=== PATIENT | female | born 1950 | race Caucasian/White ===

== ENCOUNTER → 2022-02-28 07:03 | Outpatient (CLI) | payer MEDICARE, SELFPAY ==
--- NOTE | ~2022-02-28 | MR_ITS ---
EXAMINATION: MR lumbar spine wo con DATE: 02/28/2022 07:34 INDICATION: Lumbar radiculopathy. TECHNIQUE: Magnetic resonance imaging (MRI) of the lumbar spine was performed without intravenous con trast. Sequences included sagittal T2-weighted FSE, sagittal T2-weighted FS FSE, sagittal T1-weighted FSE, and axial T2-weighted FSE. COMPARISON: None FINDINGS: There is 14 degrees levoscoliosis of thoracolumbar spine. There is a chronic compression fr acture of L2 with 1/5 loss of height. There is mildly decreased disc height at T12-L1, severely decre ased disc height at L2-L3, L3-L4, and L4-L5, and moderately decreased disc at L5-S1 with endplate rem odeling. The distal spinal cord signal intensity is normal. The conus medullaris is at L2. Partially visualized is a 3.2 cm cyst in right kidney. The following disc levels are specifically discussed: T12-L1: The disc is bulging and has an annular fissure. There is mild bilateral facet joint osteoarth ritis. There is mild left neural foraminal stenosis. There is mild central canal stenosis. L1-L2: The disc is bulging and has an annular fissure. There is moderate bilateral facet joint osteoa rthritis. There is mild bilateral neural foraminal stenosis. There is mild central canal stenosis. L2-L3: The disc is bulging and has an annular fissure. There is mild bilateral facet joint osteoarthr itis. There is mild bilateral neural foraminal stenosis. There is mild central canal stenosis. L3-L4: The disc is bulging with superimposed left central extrusion. There is moderate right and and severe left facet joint osteoarthritis. There is mild bilateral neural foraminal stenosis. There is m ild central canal stenosis. L4-L5: The disc is bulging and has an annular fissure. There is moderate left facet joint osteoarthri tis. There is mild bilateral neural foraminal stenosis. There is mild central canal stenosis. L5-S1: The disc is bulging and has an annular fissure. There is moderate right and severe left facet joint osteoarthritis. There is mild bilateral neural foraminal stenosis. There is mild central canal stenosis. IMPRESSION: 1. Severe lumbar spondylosis. 2. Thoracolumbar levoscoliosis. Reviewed, dictated and finalized at location A.
== END ==
PROVIDERS: PCP Internal Medicine; Visit Provider Nurse Practitioner Family
DX: M54.16 Radiculopathy, lumbar region (principal); M47.894 Other spondylosis, thoracic region
CPT/HCPCS: 72148

== ENCOUNTER 2022-04-25 11:53 | Outpatient (CLI) | payer MEDICARE, SELFPAY ==
--- NOTE | 2022-04-25 12:54 | ECG_ITS ---
Measurements Intervals [place] Rate: 78 P: 62 PA: 189 QRS: 13 QRSD: 87 T: 48 QT: 353 QTc: 403 Interpretive Statements SINUS RHYTHM CONSIDER INFERIOR INFARCT, AGE INDETERMINATE BASELINE ARTIFACT- I, II, III, AVR, AVL, AVF ABNORMAL ECG Electronically Signed On 04-25-2022 13:20:21 CDT by Juice Harper D.O.
[2022-04-25 13:37] LABS: Basophils Percent Auto 0.4 % (0.2-1.2); Eosinophils Percent Auto 0.7 % (0-4.4); Hematocrit 46.8 % (37.0-47.0); Hemoglobin 15.7 g/dL (12.0-15.0); Immature Granulocyte Absolute 0.01 K/mm3 (0.00-0.031); Immature Granulocyte Percent A 0.2 % (0-0.5); Lymphocytes Absolute Auto 1.68 K/mm3 (0.9-3.2); Lymphocytes Percent Auto 30.2 % (18.3-44.2); Mean Corpuscular HGB Conc 33.5 g/dl (32-36); Mean Corpuscular Hemoglobin 29.7 pg (26-34); Mean Corpuscular Volume 88.6 fl (80-100); Mean Platelet Volume 9.1 fl (7.4-10.4); Monocytes Absolute Auto 0.6 K/mm3 (0.1-0.6); Monocytes Percent Auto 9.9 % (2.6-8.5); Neutrophils Absolute Auto 3.3 K/mm3 (1.3-6.7); Neutrophils Percent Auto 58.6 % (45.5-73.1); Platelet Count Result 253 k/mm3 (150-375); Red Blood Count 5.28 M/mm3 (4.2-5.4); White Blood Count 5.6 K/mm3 (4.5-10.0)
[2022-04-25 13:41] LABS: Appearance Urine Clear (Clear); Bilirubin Urine Negative (Negative); Blood Urine Negative (Negative); Color Urine Yellow (Yellow); Glucose Urine UA Negative (Negative); Ketones Urine Negative (Negative); Leukocyte Esterase Ur Negative LEU/UL (Negative); Nitrate Urine Negative (Negative); Protein Urine Negative (Negative); Specific Grav Ur >= 1.030 (1.001-1.035); Urobilinogen Urine 0.2 mg/dL (<2.0)
[2022-04-25 13:46] LABS: INR 1.1; Prothrombin Time 13.3 Seconds (11.1-14.7)
[2022-04-25 13:49] LABS: Urine Cotinine NEGATIVE
[2022-04-25 13:49] LABS: Albumin Level 4.7 g/dL (3.5-5.1); Anion Gap 11 mmol/L (8-16); Blood Urea Nitrogen 17 mg/dL (7-17); Calcium 10.1 mg/dL (8.4-10.2); Carbon Dioxide 27 mmol/L (22-30); Chloride 104 mmol/L (98-107); Estimated Glomerular Filt Rate 49; Glucose 98 mg/dL (65-110); Potassium 4.3 mmol/L (3.4-5.0); Sodium 142 mmol/L (137-145)
[2022-04-25 13:50] LABS: Hemoglobin A1C 4.9 % (<5.7)
[2022-04-25 13:52] LABS: Mucus Urine Rare /lpf; Squamous Epithelial Cell Urine Rare /hpf (Few)
[2022-04-25 14:03] LABS: Add Urine Microscopic? YES
== END 2022-04-25 11:54 | disposition home or self-care (01) ==
LOC: ANHSURGERY 11:58
PROVIDERS: PCP Internal Medicine; Visit Provider Orthopaedic Surgery
DX: M17.12 Unilateral primary osteoarthritis, left knee (principal); Z01.818 Encounter for other preprocedural examination; R94.31 Abnormal electrocardiogram [ECG] [EKG]
CPT/HCPCS: 80048; 80307; 81001; 82040; 83036; 85025; 85610; 85730; 87081; 93005

== ENCOUNTER 2022-05-09 00:12 | Day surgery (SDC) | payer MEDICARE, SELFPAY ==
[2022-04-25 12:05] VITALS: BMI 27.7
--- NOTE | 2022-04-25 12:36 | PC.NURSE ---
Addendum entered by Christina Huggins RN 04/25/22 12:41: TAKES ALPRAZOLAM AT HS. DON'T TAKE AM OF SURGERY Original Note: Report to the Outpatient Waiting Room, entrance under the green pavilion located off [facility], at time _0900 on date __05/09/22 . OR Time: 1100 . - You and your visitor will be asked a series of questions to screen for COVID 19 for your protection. - Only one visitor is allowed at this time. - The patient visitor is requested to leave or wait in car when not with patient. - A mask is required within the hospital. Patients may have clear liquids (water, carbonated beverages, clear teas, apple juice) until 3 hours prior to surgery with a maximum of 20 ounces. - No food from midnight until time of surgery - Infants may have breast milk until 4 hours before surgery, formula 6 hours prior to surgery. - Children will be allowed to drink immediately following surgery. If applicable, please bring a bottle or sippy cup to assist with drinking. Juice, water, soda, and popsicles are readily available. For infants on formula, please bring formula the day of surgery. Pacifiers are allowed. Take the following medications with a SIP of water the morning of surgery: ___ALPRAZOLAM,ESCITALOPRAM, Medications to discontinue per physician __ALEVE PER DR BECERRA. ALL VITAMINS AND SUPPLEMENTS 3 DAYS PRE OP Date to take last dose____05/05/22 Please no make-up, nail greek, hairspray, perfume, deodorant, or body powder the day of surgery. No jewelry (including any body piercings) or valuables the day of surgery, leave them at home. Please take a shower or bath the night before, or the morning of, surgery with an antibacterial soap. Wear comfortable, loose fitting clothing. Children are encouraged to wear pajamas. - Jewelry must be removed prior to entering the operating room. Rings and piercings that are not removed may be cut off. - The hospital will not accept responsibility for valuables. - Please leave all valuables, including medications, at home the day of surgery. If you are going home after surgery, a licensed wrecking car driver must drive you home. - NO public transportation without another adult. - We recommend that an adult stay with you for 24 hours following discharge. - We also recommend that you do not drive, make important decision, drink alcoholic beverages, or take any drugs that were not prescribed by your health care provider for at least 24 hours after your discharge time. For Pediatric surgeries, we recommend two adults accompany the child home (only one inside the building at this time). Follow any additional instructions given to you from your surgeon. If you or anyone in your household have experienced Covid symptoms in the past week, please notify your surgeon or the nurse liaison at the phone number below for possible testing. Telephone instructions given to _PATIENT and asked if any additional questions and then verbalized understanding. Patient advised to call surgeon office or pre surgery nurse liaison [phone] if any additional questions.
[2022-04-25 12:50] VITALS: BP 111/80; PULSE 83; RESP 18; TEMP 36.6; O2SAT 98
[2022-05-09] VITALS (15 sets, daily range): BP systolic 108–151; BP diastolic 70–98; PULSE 74–100; RESP 12–20; TEMP 36.1–36.4; O2SAT 96–100
--- NOTE | ~2022-05-09 | XR_ITS ---
XR knee LT 2V DATE: 05/09/2022 14:11 INDICATION: Left total knee arthroplasty TECHNIQUE: Postoperative AP and lateral views COMPARISON: 04/10/2022 left knee FINDINGS: Status post left total knee arthroplasty without patellar resurfacing. Normal alignment at the left knee joint. There is expected postoperative subcutaneous and intra-articular emphysema. Skin austin are noted along the anterior aspect of the knee. IMPRESSION: Status post left knee arthroplasty Reviewed, dictated and finalized at location B.
--- NOTE | 2022-05-09 07:16 | WPDHPUPDATE1 ---
History and Physical Update Update Date/Time: 05/09/22 07:16 History and Physical has been reviewed, including an updated exam of the patient. There are NO changes in the patient's condition. Risks, benefits, and alternatives have been discussed and questions answered. Patient agrees to proceed with procedure.
[2022-05-09] MEDS: ACETAMINOPHEN 500 MG TABLET 1000 MG PO (09:12)
[2022-05-09] MEDS: LACTATED RINGERS 1,000 ML 30 ML IV CONT (09:33)
--- NOTE | 2022-05-09 10:20 | WPDANESEPPF ---
Anes - Initial Pre Proc Eval Procedure: Operation Date: 05/09/22 11:00 Proposed Procedures p Left Total Knee Arthroplasty - Oscar Baez MD Date/Time: 05/09/22 10:20 Surgeon: Oscar Baez MD Pre Op Diagnosis: Left Knee DJD Patient Data Age: 71 Gender: F Height: 1.68 m Weight: 77.2 kg Last Vital Signs Temp 36.1 C L 05/09/22 09:18 Pulse 89 05/09/22 09:18 Resp 16 05/09/22 09:18 BP 147/91 H 05/09/22 09:18 Pulse Ox 98 05/09/22 09:18 O2 Del Method Room Air 05/09/22 09:18 Allergies Allergy/AdvReac Type Severity Reaction Status Date / Time erythromycin base Allergy Mild Rash Verified 05/09/22 09:09 Home Medications Medication Instructions Recorded Confirmed Type alprazolam 1 mg tablet 0.25 mg PO HS 04/10/22 05/09/22 History famotidine 20 mg tablet 20 mg PO DAILY 04/10/22 05/09/22 History glucosamine HCl 500 mg tablet 1,000 mg PO DAILY 04/10/22 05/09/22 History pantoprazole 40 mg tablet,delayed 40 mg PO QAM 04/10/22 05/09/22 History release calcium citrate 315 mg-vitamin D3 1 tablet PO BID 04/25/22 05/09/22 History 5 mcg (200 unit) tablet (Calcium Citrate + D) cholecalciferol (vitamin D3) 50 100 mcg PO DAILY 04/25/22 05/09/22 History mcg (2,000 unit) tablet cyanocobalamin (vitamin B-12) 2,500 mcg PO DAILY 04/25/22 05/09/22 History 2,500 mcg tablet escitalopram oxalate 20 mg tablet 20 mg PO DAILY 04/25/22 05/09/22 History naproxen sodium 220 mg capsule 440 mg PO PRN PRN Pain 04/25/22 05/09/22 History (Aleve) nutritional supp - diet aids 2 tablet PO BID 04/25/22 05/09/22 History omega-3 fatty acids 2,000 mg PO DAILY 04/25/22 05/09/22 History chlorhexidine gluconate 4 % 1 applic topical ONCE #237 mL 05/01/22 Rx topical liquid (Hibiclens) Laboratory Tests 05/09/22 09:27 Blood Type O Positive Antibody Screen Negative Patient hx anesthesia problems: none Family hx anesthesia problems: none Results Review: All pre-operative results and documents have been reviewed as part of the pre-operative evaluation. [facility] Past Medical History Medical History Arthritis Depression Left knee DJD Pelvis fracture, right Right knee DJD Weight gain Surgical History Surgical History History of eyelid surgery Ptosis- Dr. Sandhu Family History Family History Other Family history of arthritis Family history of malignant neoplasm Social History Social History Smoking status: Never smoker Additional smoking assessment comments: DENIES ANY FORM OF TOBACCO USE Alcohol intake: current Drinks per week: 2 Alcohol use details: WINE Substance use: never Living arrangements: with family Gender identity (if verbalized by the patient): Female Spiritual care concerns: No Anes - Eval Final PreProcedure Day of Procedure 05/09/22 10:20 Patient weight: overweight Heart: regular rate and rhythm Lungs: clear to auscultation Airway: Mallampati scale class II Neurological: alert and oriented Last oral intake: >/= 8 hours ASA classification: III Emergent: no Anesthetic plan: proceed Anesthesia type and monitoring: general LMA and standard monitoring Results Review: All pre-operative results and documents have been reviewed as part of the pre-operative evaluation. Informed Consent: The patient's anesthetic plan and its attendant risks and benefits were discussed with the patient/family/POA. Questions were solicited and answers provided to the satisfaction of the patient/family/POA.
[2022-05-09] MEDS: TRANEXAMIC ACID 1,000MG/ISO100 1,000 MG/100 ML BAG 200 MG IVPB (10:32)
--- NOTE | 2022-05-09 11:07 | WPDANESPNB ---
Anes - Peripheral Nerve Block Date/Time: 05/09/22 11:07 I have discussed with the patient/family/POA the placement of a peripheral nerve block for post-operative pain management, including associated risks, benefits, complications, and side effects. Alternative methods of post-operative analgesia were detailed. Questions were solicited and answers provided to the satisfaction of the patient/family/POA. Time-Out: A pre-procedural Time-Out was completed immediately before starting the procedure and confirmed: Patient Identification, Site, Procedure, Patient Position and the Availability of Requisite Equipment. Clinical Indications: Acute post-operative pain management requested by the operative surgeon. Nerve Block Insertion Note Anes-nerve block: adductor canal Patient position: supine Skin prep: chlorhexidine Needle: 22 gauge, stimulating, insulated echogenic needle. Needle length: 80 mm Technique: ultrasound Technique comment: mid 2mg fent 50mcg Injectate: bupivacaine 0.5% with epi 5 mcg/ml (30ml no epi) and dexamethasone (mg) (4) Observations: tolerated well Procedure start time:: 1058 Procedure end time:: 1103
[2022-05-09] MEDS: ceFAZolin 2 GM/D5W 50 ML 2 GM/50 ML BAG IVPB ×2 (11:33→18:06)
[2022-05-09] MEDS: GENTAMICIN BONE CEMENT REFOBACIN 1 EACH TOPICAL (12:22)
[2022-05-09] MEDS: TRANEXAMIC ACID 1,000 MG/10 ML AMPUL 1000 MG IV PUSH (13:06)
[2022-05-09] MEDS: fentaNYL CITRATE INJ (*CRX) 100 MCG/2 ML VIAL 25 MCG IV PUSH ×8 (14:06→14:56)
--- NOTE | 2022-05-09 14:15 | P.OP_ITS ---
Procedure Note - Detailed Date of Procedure 05/09/22 Pre-op Diagnosis Left Knee DJD Post-op Diagnosis Same Procedure Performed L TKA Surgeon Oscar Baez MD Anesthesia General Description of Procedure THE LEFT KNEE WAS PREPPED AND DRAPED IN THE STERILE FASHION. A MIDLINE SKIN INCISION WAS MADE. A MEDIAL PARAPATELLAR ARTHROTOMY WAS MADE. THE PATELLA WAS EVERTED. THERE WAS TRICOMPARTMENT DJD. AN INTRAMEDULLARY ZARA WAS PLACED IN THE FEMUR. A DISTAL FEMORAL CUT WAS MADE IN 5 DEGREES OF VALGUS REMOVING A PPROXIMATELY 9 MM OF BONE FROM THE DISTAL FEMUR. THE FEMUR WAS SIZED TO 65. A 65 FEMORAL CUTTING BLOCK WAS PLACED IN 3 DEGREES OF EXTERNAL ROTATION AND IN ALIGNMENT WITH SUKUMAR'S LINE AND THE TRANSEPICONDYLAR AXIS. ANTERIOR POSTERIOR AND CHAMFER CUTS WERE MADE. THE CUTS WERE EXCELLENT. NEXT AN INTRAMEDULLARY CUTTING GUIDE WAS PLACED IN THE TIBIA. A TRANS TIBIAL CUT WAS MADE ALONG THE LONG AXIS OF THE TIBIA. APPROXIMATELY 10 MM OF BONE WAS REMOVED FROM THE HIGH SIDE OF THE TIBIA. THE TIBIA WAS THEN PLANED TO A SMOOTH SURFACE. POSTERIOR FEMORAL OSTEOPHYTES WERE REMOVED FROM THE FEMORAL CONDYLES. A 75 TIBIAL TRIAL WAS PLACED IN ALIGNMENT WITH THE 1/3 MEDIAL ASPECT OF THE TIBIAL TUBERCLE. THEN A 65 FEMORAL TRIAL COMPONENT WAS PLACED. BOTH HAD EXCELLENT FITS. EVENTUALLY A 11 MM POLYETHYLENE TRIAL COMPONENT WAS PLACED. THE KNEE WAS TAKEN THROUGH A RANGE OF MOTION. THE KNEE CAME OUT TO FULL EXTENSION. THERE WAS NO ABNORMAL TILT TO THE PATELLA. THERE WAS GOOD A/P AND VARUS/VALGUS STABILITY. THERE WAS NO EXCESSIVE ROLL BACK WITH FLEXION. THE TRIAL COMPONENTS WERE REMOVED. THEN A 65 FEMORAL COMPONENT AND 75 TIBIAL COMPONENT WITH A 11 POLYETHYLENE COMPONENT WERE CEMENTED INTO PLACE. ONCE THE CEMENT WAS HARD THE KNEE WAS TAKEN THROUGH A ROM AGAIN AND FOUND TO BE STABLE WITH NO PATELLA TILT NO EXCESSIVE ROLL BACK WITH FLEXION AND GOOD STABILITY WITH COMPLETE AND FULL EXTENSION. THE KNEE WAS IRRIGATED WITH STERILE BETADINE AND WATER FOR ABOUT 3 MINUTES. THE BLEEDERS WERE CAUTERIZED. THE ARTHROTOMY WAS REPAIRED WITH NUMBER 1 VICRYL. THE SUB CUTANEOUS LAYER WITH 2-0 VICRYL AND THE SKIN WITH IKER. THE WOUND WAS WASHED AND A STERILE DRESSING WAS APPLIED. PATIENT WAS EXTUBATED. Estimated Blood Loss -100.0 Pathology None sent Complications No immediate complications Condition Stable Disposition PACU
--- NOTE | 2022-05-09 15:59 | ADMGEN ---
This patient, Nancy Lopez, was admitted to Medical Room 253-01. Patient/family oriented to hospital policies and general routines including ID bracelet, bed and alarms, visiting hours, pain management, procedures, bathroom and other care routines, personal items, smoking policy, room service/diet, and visiting hours. Information on how to activate the Rapid Response Team has been discussed. Patient/Family are encouraged to report perceived risks to care and to ask questions if they do not understand what they are told or what they should do.
[2022-05-09 16:31] LABS: Estimated CRCL calculation 52 ml/min; Estimated Glomerular Filt Rate > 60
[2022-05-09] MEDS: SENNA/DOCUSATE SODIUM TABLET 2 TAB PO (16:57)
[2022-05-09] MEDS: CELECOXIB 200 MG CAPSULE PO (16:58)
--- NOTE | 2022-05-09 19:21 | PC.NURSE ---
On 05/09/22, the Graduate Nurse, Ajay Reyes, provided care and completed [facility] documentation on this patient. I have reviewed the student's documentation and agree with the findings.
[2022-05-09] MEDS: ASPIRIN 325 MG ENTERIC TABLET PO (21:29)
[2022-05-09] MEDS: ALPRAZolam (*CRX) 0.25 MG TABLET PO (21:29)
[2022-05-10 02:03] VITALS: BP 100/61; PULSE 82; RESP 20; TEMP 36.1; O2SAT 98
[2022-05-10] MEDS: ceFAZolin 2 GM/D5W 50 ML 2 GM/50 ML BAG IVPB ×2 (02:19→10:30)
[2022-05-10 05:50] VITALS: BP 102/57; PULSE 58; RESP 20; TEMP 36.1; O2SAT 99
[2022-05-10 06:22] LABS: Basophils Percent Auto 0.1 % (0.2-1.2); Eosinophils Percent Auto 0.1 % (0-4.4); Hematocrit 37.8 % (37.0-47.0); Hemoglobin 12.6 g/dL (12.0-15.0); Immature Granulocyte Absolute 0.03 K/mm3 (0.00-0.031); Immature Granulocyte Percent A 0.3 % (0-0.5); Lymphocytes Absolute Auto 1.54 K/mm3 (0.9-3.2); Lymphocytes Percent Auto 14.9 % (18.3-44.2); Mean Corpuscular HGB Conc 33.3 g/dl (32-36); Mean Corpuscular Hemoglobin 29.8 pg (26-34); Mean Corpuscular Volume 89.4 fl (80-100); Mean Platelet Volume 9.1 fl (7.4-10.4); Monocytes Absolute Auto 1.1 K/mm3 (0.1-0.6); Monocytes Percent Auto 10.7 % (2.6-8.5); Neutrophils Absolute Auto 7.6 K/mm3 (1.3-6.7); Neutrophils Percent Auto 73.9 % (45.5-73.1); Platelet Count Result 207 k/mm3 (150-375); Red Blood Count 4.23 M/mm3 (4.2-5.4); White Blood Count 10.3 K/mm3 (4.5-10.0)
[2022-05-10 06:44] LABS: Anion Gap 8 mmol/L (8-16); Blood Urea Nitrogen 11 mg/dL (7-17); Calcium 9.4 mg/dL (8.4-10.2); Carbon Dioxide 25 mmol/L (22-30); Chloride 103 mmol/L (98-107); Estimated CRCL calculation 52 ml/min; Estimated Glomerular Filt Rate > 60; Glucose 97 mg/dL (65-110); Potassium 3.9 mmol/L (3.4-5.0); Sodium 136 mmol/L (137-145)
--- NOTE | 2022-05-10 07:55 | P.PNAN_ITS ---
Anes - Prog Note Post-Op Date/Time: 05/10/22 07:55 Cardiovascular status: normal Respiratory status: normal Airway patency: baseline Mental status: baseline Post-Op hydration status: normal Vital Signs: Last Vital Signs Temp 97.0 F L 05/10/22 05:50 Pulse 58 L 05/10/22 05:50 Resp 20 05/10/22 05:50 BP 102/57 L 05/10/22 05:50 Pulse Ox 99 05/10/22 05:50 O2 Del Method Room Air 05/09/22 20:00 O2 Flow Rate 2 05/09/22 15:35 Pain Score (VAS): 11/10 I/O: Intake & Output 05/09/22 05/09/22 05/10/22 15:59 23:59 07:59 Intake Total 650 690 550 Output Total 200 900 Balance 650 490 -350 Laboratory Tests 05/10/22 06:01 05/10/22 06:01 05/09/22 05/09/22 05/10/22 09:27 16:18 06:01 WBC 10.3 H RBC 4.23 Hgb 12.6 D Hct 37.8 MCV 89.4 MCH 29.8 MCHC 33.3 RDW 13.0 Plt Count 207 MPV 9.1 Immature Gran % (Auto) 0.3 Neut % (Auto) 73.9 H Lymph % (Auto) 14.9 L [place] % (Auto) 10.7 H Eos % (Auto) 0.1 Baso % (Auto) 0.1 L Lymph # (Auto) 1.54 [place] # (Auto) 1.1 H Eos # (Auto) 0.0 Baso # (Auto) 0.0 Abs Immat Gran (auto) 0.03 Absolute Neuts (auto) 7.6 H Absolute Nucleated RBC 0.0 Nucleated RBC % 0.0 Sodium Potassium Chloride Carbon Dioxide Anion Gap BUN Creatinine 0.90 Estim Creat Clear Calc 52 Estimated GFR > 60 Glucose Calcium Blood Type O Positive Antibody Screen Negative 05/10/22 06:01 WBC RBC Hgb Hct MCV MCH MCHC RDW Plt Count MPV Immature Gran % (Auto) Neut % (Auto) Lymph % (Auto) [place] % (Auto) Eos % (Auto) Baso % (Auto) Lymph # (Auto) [place] # (Auto) Eos # (Auto) Baso # (Auto) Abs Immat Gran (auto) Absolute Neuts (auto) Absolute Nucleated RBC Nucleated RBC % Sodium 136 L Potassium 3.9 Chloride 103 Carbon Dioxide 25 Anion Gap 8 BUN 11 D Creatinine 0.90 Estim Creat Clear Calc 52 Estimated GFR > 60 Glucose 97 Calcium 9.4 Blood Type Antibody Screen Post-procedural complaints: none Patient Feedback: Patient satisfied with anesthetic care.
[2022-05-10] MEDS: CELECOXIB 200 MG CAPSULE PO ×2 (08:22→16:54)
[2022-05-10] MEDS: ASPIRIN 325 MG ENTERIC TABLET PO (08:22)
[2022-05-10] MEDS: SENNA/DOCUSATE SODIUM TABLET 2 TAB PO ×2 (08:23→16:53)
[2022-05-10] MEDS: CHOLECALCIFEROL 1,000 UNITS TABLET 4000 UNITS PO (08:23)
[2022-05-10] MEDS: CYANOCOBALAMIN 500 MCG TABLET 2500 MCG PO (08:23)
[2022-05-10] MEDS: ESCITALOPRAM OXALATE 10 MG TABLET 20 MG PO (08:24)
[2022-05-10] MEDS: PANTOPRAZOLE 40 MG TABLET PO (08:24)
[2022-05-10] MEDS: FAMOTIDINE 20 MG TABLET PO (08:24)
[2022-05-10] MEDS: polyethylene glycoL 3350 17 GM POWD.PACK PO (08:25)
[2022-05-10 10:20] VITALS: BP 119/64; PULSE 60; RESP 16; TEMP 36.9; O2SAT 99
[2022-05-10 14:00] VITALS: BP 104/53; PULSE 73; RESP 16; TEMP 36.9; O2SAT 97
--- NOTE | 2022-05-10 15:00 | PM.PNORT ---
Progress Note: A&P Assessment and Plan (1) Left knee DJD: Qualifiers: Osteoarthritis type: primary Qualified Code(s): M17.12 - Unilateral primary osteoarthritis, left knee Code(s): M17.12 - Unilateral primary osteoarthritis, left knee Status: Acute Plan POD 1 DOING WELL. OK TO DC HOME F/U IN 3 WEEKS. Subjective Subjective Date/Time Seen: 05/10/22 15:00 POD 1 DOING VERY WELL WORKING WELL WITH PT. NO CALF PAIN Exam Extrem: Other: VSS AFEBRILE DRESSING DRY NV INTACT NEG HOMANS SIGN, CALF SOFT NON TENDER Objective Data Vital Signs Vital Signs: Vital Signs - 24 hr 05/09/22 15:15 05/09/22 15:30 05/09/22 15:35 Temperature Pulse Rate 88 74 87 Respiratory Rate 12 14 12 Blood Pressure 125/72 141/83 H 139/80 Pulse Oximetry 98 100 100 Oxygen Delivery Nasal Cannula Nasal Cannula Nasal Cannula Oxygen Flow Rate 2 2 2 05/09/22 15:55 05/09/22 16:17 05/09/22 16:39 Temperature 36.1 C L 36.2 C L 36.4 C L Pulse Rate 92 75 93 Respiratory Rate 20 20 18 Blood Pressure 139/82 130/85 118/83 Pulse Oximetry 100 96 100 Oxygen Delivery Oxygen Flow Rate 05/09/22 17:40 05/09/22 21:26 05/09/22 20:00 Temperature 36.3 C L 36.2 C L Pulse Rate 99 97 Respiratory Rate 18 20 Blood Pressure 108/70 109/73 Pulse Oximetry 96 98 Oxygen Delivery Room Air Oxygen Flow Rate 05/10/22 02:03 05/10/22 05:50 05/10/22 07:34 Temperature 36.1 C L 36.1 C L Pulse Rate 82 58 L Respiratory Rate 20 20 Blood Pressure 100/61 102/57 L Pulse Oximetry 98 99 Oxygen Delivery Room Air Oxygen Flow Rate 05/10/22 09:04 05/10/22 10:20 05/10/22 14:00 Temperature 36.9 C 36.9 C Pulse Rate 60 73 Respiratory Rate 16 16 Blood Pressure 119/64 104/53 L Pulse Oximetry 99 97 Oxygen Delivery Room Air Oxygen Flow Rate Intake/Output Intake/Output: Intake & Output 05/07/22 05/08/22 05/09/22 05/10/22 23:59 23:59 23:59 23:59 Intake Total 1340 1010 Output Total 200 900 Balance 1140 110 Meds/Results Medications: Active Medications Generic Name Dose Route Start Last Admin Trade Name Mananq PRN Reason Stop Dose Admin Acetaminophen 1,000 mg 05/09/22 15:39 Acetaminophen 500 Mg Tablet PO Q6H PRN Pain Rated 1-3 Alprazolam 0.25 mg 05/09/22 21:00 05/09/22 21:29 Alprazolam (*Crx) 0.25 Mg Tablet PO 0.25 mg HS LÓPEZ Administration Aspirin 325 mg 05/09/22 21:00 05/10/22 08:22 Aspirin 325 Mg Enteric Tablet PO 325 mg Q12HR LÓPEZ Administration Celecoxib 200 mg 05/09/22 17:00 05/10/22 08:22 Celecoxib 200 Mg Capsule PO 200 mg BIDWM LÓPEZ Administration Cyanocobalamin 2,500 mcg 05/10/22 09:00 05/10/22 08:23 Cyanocobalamin 500 Mcg Tablet PO 2,500 mcg DAILY LÓPEZ Administration Diazepam 5 mg 05/09/22 15:39 Diazepam (*Crx) 5 Mg Tablet PO Q8H PRN Spasms Diphenhydramine HCl 25 mg 05/09/22 15:39 Diphenhydramine Hcl Inj 50 Mg/Ml Vial IV PUSH Q6H PRN Itching Escitalopram Oxalate 20 mg 05/10/22 09:00 05/10/22 08:24 Escitalopram Oxalate 10 Mg Tablet PO 20 mg DAILY LÓPEZ Administration Famotidine 20 mg 05/10/22 09:00 05/10/22 08:24 Famotidine 20 Mg Tablet PO 20 mg DAILY LÓPEZ Administration Naloxone HCl 0.1 mg 05/09/22 15:39 Naloxone Hcl 0.4 Mg/Ml Vial IV PUSH Q2M PRN Opiate Reversal Ondansetron HCl 4 mg 05/09/22 15:39 Ondansetron Inj 4 Mg/2 Ml Vial IV PUSH Q4H PRN Nausea And Vomiting Oxycodone/Acetaminophen 1 tablet 05/09/22 15:39 Oxycodone/Acetaminophen (*Crx) 5-325 Mg Tablet PO Q4H PRN Pain Rated 4-6 Oxycodone/Acetaminophen 2 tablet 05/09/22 15:39 Oxycodone/Acetaminophen (*Crx) 5-325 Mg Tablet PO Q6H PRN Pain Rated 7-10 Pantoprazole Sodium 40 mg 05/10/22 09:00 05/10/22 08:24 Pantoprazole 40 Mg Tablet PO 40 mg QAM LÓPEZ Administration Polyethylene Glycol 17 gm 05/10/22 09:00 05/10/22 08:25 Polyethylen
--- NOTE | 2022-05-10 15:03 | PM.DS ---
DS: Admitting Diagnosis Discharge Date 05/10/22 Admitting Diagnosis LEFT KNEE DJD DS: Discharge Diagnosis Discharge Diagnosis (1) Left knee DJD: Qualifiers: Osteoarthritis type: primary Qualified Code(s): M17.12 - Unilateral primary osteoarthritis, left knee Code(s): M17.12 - Unilateral primary osteoarthritis, left knee Status: Acute DS: Summary Hospital Course Reason for hospitalization: LEFT KNEE REPLACEMENT Hospital Course: PATIENT WAS ADMITTED S/P TOTAL KNEE ARTHROPLASTY FOR POSTOPERATIVE MEDICAL MANAGEMENT, PAIN CONTROL AND MOBILIZATION WITH PHYSICAL AND OCCUPATIONAL THERAPY. THE PATIENT PROGRESSED WELL WITH PT/OT. LABS AND VITALS REMAINED STABLE AND PAIN WELL CONTROLLED. THE PATIENT HAS BEEN CLEARED TO BE DISCHARGED HOME. FOLLOW UP APPOINTMENT SCHEDULED. DISCHARGE INSTRUCTIONS DISCUSSED AT LENGTH WITH THE PATIENT. MEDICATIONS REVIEWED. Status at Discharge Cognitive/behavioral status at discharge: STABLE Functional status at discharge: uses cane/walker Time Spent with Patient Time attestation: Total time spent providing and/or coordinating discharge services: Time spent: Less than 30 minutes DS: Data Data Completed and Pending Labs on day of discharge: Labs from last 24 hours 05/10/22 05/10/22 05/09/22 06:01 06:01 16:18 WBC 10.3 H RBC 4.23 Hgb 12.6 D Hct 37.8 MCV 89.4 MCH 29.8 MCHC 33.3 RDW 13.0 Plt Count 207 MPV 9.1 Immature Gran % (Auto) 0.3 Neut % (Auto) 73.9 H Lymph % (Auto) 14.9 L [place] % (Auto) 10.7 H Eos % (Auto) 0.1 Baso % (Auto) 0.1 L Lymph # (Auto) 1.54 [place] # (Auto) 1.1 H Eos # (Auto) 0.0 Baso # (Auto) 0.0 Abs Immat Gran (auto) 0.03 Absolute Neuts (auto) 7.6 H Absolute Nucleated RBC 0.0 Nucleated RBC % 0.0 Sodium 136 L Potassium 3.9 Chloride 103 Carbon Dioxide 25 Anion Gap 8 BUN 11 D Creatinine 0.90 0.90 Estim Creat Clear Calc 52 52 Estimated GFR > 60 > 60 Glucose 97 Calcium 9.4 Procedures/Treatments: LEFT TKA Discharge Plan Discharge Patient Disposition: Home, Self-Care Discharge Instructions: Per Care Coordination, pt. will discharge home with [facility] for continued PT/OT/RN. [facility] will contact pt. at time of discharge to schedule first assessment. SASKIA BAEZ M.D. [facility] [address] [place] [address] POST OPERATIVE DISCHARGE INSTRUCTIONS FOLLOWING TOTAL KNEE REPLACEMENT SURGERY ? Your dressing will be changed prior to your discharge. You will be sent home with one additional dressing to be changed on post op day 7 by the home health RN. Your austin will be removed on the 14th day after surgery and steri-strips will be placed. Please practice good hand hygiene and do not touch your incision in order to prevent infection. ? You may shower with your dressing but do not submerge in a bath tub. ? Do not drive or operate machinery until you are released by Dr. Baez. ? Do not walk without a walker for any reason until you are released by Dr. Baez. ? Continue to use your ice machine. Please use a towel or pillow case to protect your skin before applying your ice machine. ? Do NOT place a pillow under your knee. You may use a pillow from the calf down if needed. This will prevent a flexion contracture postoperatively. ? You may begin use of your CPM machine at home if you have been given one pre-operatively. DO NOT USE WHILE YOU ARE SLEEPING. ? Your first post op appointment was sent to you via mail preoperatively. If you have any questions or are unable to make your appointment, please contact our office for scheduling questions. ? Your medications have been sent to your pharmacy. You have been sent home with pain medication. We have also sent you with a stool softener as narcotics can cause constipation.
== END 2022-05-10 17:16 | disposition home or self-care (01) ==
LOC: ANHSURGERY 09:00 → ANH2MED 15:44
PROVIDERS: PCP Internal Medicine; Visit Provider Orthopaedic Surgery
PROC: (CPT 27447; principal; 2022-05-09 11:00)
DX: M17.12 Unilateral primary osteoarthritis, left knee (principal); G89.18 Other acute postprocedural pain; F32.A Depression, unspecified
CPT/HCPCS: 27447; 64447; 36415; 73560; 80048; 80307; 81001; 82040; 82565; 83036; 85025; 85610; 85730; 86850; 86900; 86901; 87081; 93005; 97110; 97161; 97165; A9270; C1713; C1776; J0171; J0690; J1100; J1885; J2250; J2270; J2704; J2795; J3010; J7120

== ENCOUNTER → 2023-02-01 09:42 | Outpatient (CLI) | payer MEDICARE, SELFPAY ==
--- NOTE | ~2023-02-01 | XR_ITS ---
EXAMINATION: XR lumbar spine min 4V DATE: 02/01/2023 11:01 INDICATION: Lumbar spondylosis. TECHNIQUE: 5 views of lumbar spine were obtained. COMPARISON: Lumbar spine MRI 02/01/2023 FINDINGS: There is 15 degrees levoscoliosis of lumbar spine. Vertebral body heights are normal. There is severely decreased disc height from L2-L3 through L4-L5 and mildly decreased disc height at L5-S1 . There is multilevel severe facet joint osteoarthritis. IMPRESSION: 1. Severe lumbar spondylosis. 2. Lumbar levoscoliosis. Reviewed, dictated and finalized at location A.
--- NOTE | ~2023-02-01 | MR_ITS ---
MRI of the lumbar spine Clinical History: Back pain Technique: Axial T2-weighted images, and sagittal T1-weighted, T2-weighted, and T2 fat-sat images wer e acquired. COMPARISON: 02/28/2022 Findings: There is no fracture or subluxation of the lumbar spine. Osseous alignment is similar to pr ior exam. No suspicious bone marrow signal abnormality seen. At L1-L2, there is mild left foraminal disc bulge. There is mild facet arthropathy. No spinal canal s tenosis or neural foraminal narrowing. At L2-L3, there is severe degenerative disc narrowing with mild disc bulge. There is moderate facet j oint arthropathy. No johnny spinal canal stenosis. There is moderate right neural foraminal narrowing. There is minimal left neural foraminal narrowing. At L3-L4, there is severe degenerative disc narrowing with mild diffuse disc bulge. There is moderate facet arthropathy. There is left lateral recess stenosis. There is mild right neural foraminal narro wing. Left neural foramen is otherwise intact. At L4-L5, there is severe degenerative disc narrowing with mild diffuse disc bulge. There is mild to moderate facet arthropathy. No spinal canal stenosis. There is moderate to severe left neural foramin al narrowing. Right neural foramen preserved. At L5-S1, there is mild disc bulge. There is advanced left facet arthropathy and mild right facet art hropathy. No spinal canal stenosis or definite neural foraminal narrowing. Paravertebral soft tissues are unremarkable. Impression: Moderate degenerative spondylosis, as detailed above. Reviewed, dictated and finalized at [facility]. Impression: Moderate degenerative spondylosis, as detailed above.
== END ==
PROVIDERS: PCP Family Medicine; Visit Provider Neurological Surgery
DX: M43.06 Spondylolysis, lumbar region (principal); M41.9 Scoliosis, unspecified
CPT/HCPCS: 72110; 72148

== ENCOUNTER 2024-05-06 09:10 | Outpatient (CLI) | payer MEDICARE, SELFPAY | END 2024-05-06 09:11 | disposition home or self-care (01) | LOC: ANHAUDIO 09:10 | PROVIDERS: PCP Physician Assistant Medical; Visit Provider Otolaryngology | DX: H90.3 Sensorineural hearing loss, bilateral (principal); H93.19 Tinnitus, unspecified ear; H60.91 Unspecified otitis externa, right ear | CPT/HCPCS: 92557; 92567 ==

== ENCOUNTER 2024-11-22 09:24 | Emergency (ER) | payer MEDICARE, SELFPAY ==
--- NOTE | ~2024-11-22 | XR_ITS ---
EXAMINATION: XR foot RT min 3V DATE: 11/22/2024 09:56 INDICATION: Lateral right foot pain post injury TECHNIQUE: Dorsoplantar, two oblique and lateral views of the right foot were obtained. COMPARISON: None. FINDINGS: Nondisplaced extra articular fracture extending across the proximal metaphyseal region of the right f ifth metatarsal. Old healed fracture deformity at the distal diaphysis of the second metatarsal. No o ther fractures identified. Moderate to severe osteoarthritis at the first metatarsophalangeal joint w ith mild plantar/lateral subluxation. Bone alignment is otherwise normal. Additional mild polyarticul ar osteoarthritis involving many of the joints in the mid and forefoot. Mild soft tissue swelling tera ng the lateral aspect of the midfoot. IMPRESSION: 1. Nondisplaced extra articular fracture at the proximal metaphyseal region of the right fifth metata rsal. Reviewed, dictated and finalized at location A. NOSTICS TECH IMPRESSION: 1. Nondisplaced extra articular fracture at the proximal metaphyseal region of the right fifth metatarsal.
--- OUTSIDE RECORDS SUMMARY | 2024-11-22 09:28 | XMS_ITS | Encounter Summary ---
Author Organization 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
--- OUTSIDE RECORDS SUMMARY | 2024-11-22 09:28 | XMS_ITS | Encounter Summary ---
Author Organization [facility] Address [address] [facility] Attn: Epic Prelude ADT [place] [address] Care Team Providers Care Legal Support Analyst Name Role Phone Giovanni Goncalves MD Primary Care Provider Unavail able Encounter Details Date Type Department Care Team (Late st Contact Info) Description 02/08/1998 Outpatient Historical Conversion, History Giovanni Goncalves MD NO ADDRESS ON FILE Social History Tobacco Use Types Packs/Day Years Used Date Smoking Tobacco: Never Assessed Comments Unknown Sex and Gender Information Value Date Recorded Sex Assigned at Not on file Legal Sex Female 3:43 AM 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
--- OUTSIDE RECORDS SUMMARY | 2024-11-22 09:28 | XMS_ITS | Encounter Summary ---
Author Organization [facility] Address 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
--- OUTSIDE RECORDS SUMMARY | 2024-11-22 09:28 | XMS_ITS | Encounter Summary ---
Author Organization [facility] Address [address] [place] [address] Care Team Providers Care Commercial Trailer Truck Driver Name Role Phone Giovanni Goncalves MD Primary Care Provider Unavail able Encounter Details Date Type Department Care Team (Latest Contact Info) Description 06/27/2005 Outpatient Historical [facility] Noam Glynn MD ARTHROPATHY NOS-HAND (Primary Dx) Social History Tobacco Use Types Packs/Day Years Used Date Smoking Tobacco: Never Assessed Comments Unknown Sex and Gender Information Value Date Recorded Sex Assigned at Not on file Legal Sex Female 3:43 AM CLEATER Gender Identity Not on file Sexual Orientation Not on file documented as of this encounter Plan of Treatment Not on file documented as of this encounter Procedures Procedure Name Priority Date/Time Associated Diagnosis Comments HEMOGLOBIN AND HEMATOCRIT Routine 06/20/2005 2:34 PM CDT documented in this encounter Results * HEMOGLOBIN AND HEMATOCRIT (06/20/2005 2:34 PM CDT) HEMOGLOBIN 14.3 11.8 - 14.8 g/dL INTERFACE SYSTEM HEMATOCRIT 41.2 35.5 - 44.0 % INTERFACE SYSTEM 06/20/2005 2:34 PM CDT us Noam Glynn MD HEMATOLOGY ORDERABLES Final R esult INTERFACE SYSTEM Refer to clinic/hospital department documented in this encounter Visit Diagnoses Diagnosis Unspecified arthropathy, hand- Primary documented in this encounter Care Teams Commercial Trailer Truck Driver Relationship Specialty Start Date End Date Giovanni Goncalves MD NO ADDRESS ON FILE PCP - General 06/19/00 documented as of this encounter
--- OUTSIDE RECORDS SUMMARY | 2024-11-22 09:28 | XMS_ITS | Encounter Summary ---
Author Organization [facility] Address 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
--- OUTSIDE RECORDS SUMMARY | 2024-11-22 09:28 | XMS_ITS | Continuity of Care Document ---
Author Organization [facility] Address [address] [place] [address] [address] [place] [address] Phone Care Team Providers Care Hand Loom Weaver Name Role Phone Mady OTR/L, CHT, Omayra Unavailable Unavailable Procedures Procedure Date OT EVALUATION THERAPEUTIC EXERCISES Hand Advance Directives Directive Yes / No Effective Date File Name No Information Encounters Encounter Description Practice Location Reason(s) For Visit Diagnoses Date Provider Providers Copied on Encounter [facility], [address] [place] [address] [address], [place], [place], [id number], tel:[phone] [place] Pain in right handOther specified soft tissue disordersStiffn ess of right hand, not elsewhere classifiedUnil primary osteoarth of first carpometacarp joint, r handFinger-join t replacement of right handAftercare following joint replacement surgery [address]. [address] [facility], [address], [place], [place], [facility], . tel:[phone] Referring Provider: Dani Terrell, [address], [place], [address]. tel:[phone] Family History Family Member Type Diagnosis Age At Onset No Information Payers Payer name Insurance type Covered republican ID Authoriza tijules(s) AARP Medicare Complete CI [id number] Social History Type Description Quantity Date Captured Comments Sex Female Smoking Status No Information Chief Complaint And Reason For Visit No Information Reason For Referral Reason For Referral No Information History Of Present Illness Encounter Date Complaint History Of Prese nt Illness No Information Functional Status Date Functional Assessmen t No Information Instructions Date Instruction Additional Infor mation No Information Assessments Type Assessment Date No Information Patient Care Teams Name Effective Dates (start - stop) Status Members No Information
--- OUTSIDE RECORDS SUMMARY | 2024-11-22 09:28 | XMS_ITS | Encounter Summary ---
Author Organization [facility] Address 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
--- OUTSIDE RECORDS SUMMARY | 2024-11-22 09:28 | XMS_ITS | Encounter Summary ---
Author Organization [facility] Address [address] [place] [address] Care Team Providers Care Miller Kiln Dried Salt Name Role Phone Giovanni Goncalves MD Primary Care Provider Unavail able Encounter Details Date Type Department Care Team (Late st Contact Info) Description 04/23/2001 Outpatient Historical [facility] Giovanni Goncalves MD NO ADDRESS ON FILE Social History Tobacco Use Types Packs/Day Years Used Date Smoking Tobacco: Never Assessed Comments Unknown Sex and Gender Information Value Date Recorded Sex Assigned at Not on file Legal Sex Female 3:43 AM TECHNOLOGY SUPPORT ANALYST Gender Identity Not on file Sexual Orientation Not on file documented as of this encounter Plan of Treatment Not on file documented as of this encounter Visit Diagnoses Not on filedocumented in this encounter Care Teams Miller Kiln Dried Salt Relationship Specialty Start Date End Date Giovanni Goncalves MD NO ADDRESS ON FILE PCP - General 06/19/00 documented as of this encounter
--- OUTSIDE RECORDS SUMMARY | 2024-11-22 09:28 | XMS_ITS | Encounter Summary ---
Author Organization [facility] Address [address] Attn: Epic Prelude ADT JESSICA ADKINS [place] [address] Care Team Providers Care Qual Field Manager Name Role Phone Giovanni Goncalves MD Primary Care Provider Unavail able Encounter Details Date Type Department Care Team (Late st Contact Info) Description 03/01/1992 Outpatient Historical Giovanni Goncalves MD NO ADDRESS ON FILE Social History Tobacco Use Types Packs/Day Years Used Date Smoking Tobacco: Never Assessed Comments Unknown Sex and Gender Information Value Date Recorded Sex Assigned at Not on file Legal Sex Female 3:43 AM SCRAP PREPARER Gender Identity Not on file Sexual Orientation Not on file documented as of this encounter Plan of Treatment Not on file documented as of this encounter Visit Diagnoses Not on filedocumented in this encounter Care Teams Qual Field Manager Relationship Specialty Start Date End Date Giovanni Goncalves MD NO ADDRESS ON FILE PCP - General 06/19/00 documented as of this encounter
--- OUTSIDE RECORDS SUMMARY | 2024-11-22 09:28 | XMS_ITS | Encounter Summary ---
Author Organization [facility] Address [address] [place] [address] Care Team Providers Care Salesperson Shoes Name Role Phone Giovanni Goncalves MD Primary Care Provider Unavail able Encounter Details Date Type Department Care Team (Late st Contact Info) Description 03/13/2005 Outpatient Historical [facility] Giovanni Goncalves MD NO ADDRESS ON FILE Social History Tobacco Use Types Packs/Day Years Used Date Smoking Tobacco: Never Assessed Comments Unknown Sex and Gender Information Value Date Recorded Sex Assigned at Not on file Legal Sex Female 3:43 AM COMBINATION BUILDING INSPECTOR Gender Identity Not on file Sexual Orientation Not on file documented as of this encounter Plan of Treatment Not on file documented as of this encounter Visit Diagnoses Not on filedocumented in this encounter Care Teams Salesperson Shoes Relationship Specialty Start Date End Date Giovanni Goncalves MD NO ADDRESS ON FILE PCP - General 06/19/00 documented as of this encounter
--- OUTSIDE RECORDS SUMMARY | 2024-11-22 09:28 | XMS_ITS | Encounter Summary ---
Author Organization [facility] Address 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
--- OUTSIDE RECORDS SUMMARY | 2024-11-22 09:28 | XMS_ITS | Encounter Summary ---
Author Organization [facility] Address [address] [address] [facility] Attn: Epic Prelude ADT [place] [address] Care Team Providers Care Pottery Decorator Name Role Phone Giovanni Goncalves MD Primary Care Provider Unavail able Encounter Details Date Type Department Care Team (Late st Contact Info) Description 01/05/1997 Outpatient Historical Conversion, History Giovanni Goncalves MD NO ADDRESS ON FILE Social History Tobacco Use Types Packs/Day Years Used Date Smoking Tobacco: Never Assessed Comments Unknown Sex and Gender Information Value Date Recorded Sex Assigned at Not on file Legal Sex Female 3:43 AM DOCUMENT CONTROL SUPERVISOR Gender Identity Not on file Sexual Orientation Not on file documented as of this encounter Plan of Treatment Not on file documented as of this encounter Visit Diagnoses Not on filedocumented in this encounter Care Teams Pottery Decorator Relationship Specialty Start Date End Date Giovanni Goncalves MD NO ADDRESS ON FILE PCP - General 06/19/00 documented as of this encounter
--- OUTSIDE RECORDS SUMMARY | 2024-11-22 09:28 | XMS_ITS | Encounter Summary ---
Author Organization [facility] Address 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 SERVER Gender Identity Not on file Sexual Orientation Not on file documented as of this encounter Plan of Treatment Not on file documented as of this encounter Procedures Procedure Name Priority Date/Time Associated Diagnosis Comments CBC WITH DIFFERENTIAL Routine 03/13/2005 4:17 PM CDT CBC WITH DIFFERENTIAL Routine 03/13/2005 4:17 PM CDT documented in this encounter Results * CBC WITH DIFFERENTIAL (03/13/2005 4:17 PM CDT) NEUTROPHILS 69 45 - 70 % INTERFAC E SYSTEM LYMPHOCYTES 17 16 - 45 % INTERFAC E SYSTEM MONOCYTES 12 3 - 13 % INTERFACE SYSTEM EOSINOPHILS 1 0 - 7 % INTERFAC E SYSTEM BASOPHILS 0 0 - 2 % INTERFACE SYSTEM NEUTROPHIL ABSOLUTE 4.76 1.90 - 7.00 K/uL INTERFACE SYSTEM LYMPHOCYTE ABSOLUTE 1.18 0.70 - 4.50 K/uL INTERFACE SYSTEM MONOCYTE ABSOLUTE 0.81 0.10 - 1.30 K/uL INTERFACE SYSTEM EOSINOPHIL ABSOLUTE 0.09 0.00 - 0.70 K/uL INTERFACE SYSTEM BASOPHILS ABSOLUTE 0.02 0.00 - 0.20 K/uL INTERFACE SYSTEM 03/13/2005 4:17 PM CDT Giovanni Goncalves MD HEMATOLOGY ORDERABLES Final Re sult Performing Organization Address City/[facility] [place] Phone Number INTERFACE SYSTEM Refer to clinic/hospital department * (ABNORMAL) CBC WITH DIFFERENTIAL (03/13/2005 4:17 PM CDT) WBC 6.9 4.0 - 9.8 K/uL INTERFACE SYSTEM RBC 4.93(H) 3.90 - 4.90 M/uL INTERFACE SYSTEM HEMOGLOBIN 14.8 11.8 - 14.8 g/dL INTERFACE SYSTEM HEMATOCRIT 42.3 35.5 - 44.0 % INTERFACE SYSTEM MCV 85.8 82.0 - 99.0 fL INTERFACE SYSTEM MCH 30.0 27.2 - 32.6 pg INTERFACE SYSTEM MCHC 35.0 31.5 - 35.5 % INTERFACE SYSTEM RDW 13.5 11.5 - 14.5 % INTERFACE SYSTEM RDW-STDEV 42.3 37.1 - 48.7 fL INTERFACE SYSTEM PLATELETS 211 140 - 350 K/uL INTERFACE SYSTEM MPV 10.0 9.3 - 12.4 fL INTERFACE SYSTEM 03/13/2005 4:17 PM CDT Giovanni Goncalves MD HEMATOLOGY ORDERABLES Final Re sult Performing Organization Address City/[facility] [place] Phone Number INTERFACE SYSTEM Refer to clinic/hospital department documented in this encounter Visit Diagnoses Not on filedocumented in this encounter Care Teams Waste Removalist Relationship Specialty Start Date End Date Giovanni Goncalves MD NO ADDRESS ON FILE PCP - General 06/19/00 documented as of this encounter
--- OUTSIDE RECORDS SUMMARY | 2024-11-22 09:28 | XMS_ITS | Encounter Summary ---
Author Organization [facility] Address [address] [place] [address] Care Team Providers Care Used Car Salesperson Name Role Phone Giovanni Goncalves MD Primary Care Provider Unavail able Encounter Details Date Type Department Care Team (Latest Contact Info) Description 06/19/2000 Outpatient Historical [facility] Noam Glynn MD Unspecified arthropathy, hand (Primary Dx) Social History Tobacco Use Types Packs/Day Years Used Date Smoking Tobacco: Never Assessed Comments Unknown Sex and Gender Information Value Date Recorded Sex Assigned at Not on file Legal Sex Female 3:43 AM AIR AND HYDRONIC BALANCING TECHNICIAN Gender Identity Not on file Sexual Orientation Not on file documented as of this encounter Plan of Treatment Not on file documented as of this encounter Visit Diagnoses Diagnosis Unspecified arthropathy, hand- Primary documented in this encounter Care Teams Used Car Salesperson Relationship Specialty Start Date End Date Giovanni Goncalves MD NO ADDRESS ON FILE PCP - General 06/19/00 documented as of this encounter
--- OUTSIDE RECORDS SUMMARY | 2024-11-22 09:28 | XMS_ITS | Encounter Summary ---
Author Organization [facility] Address [address] [place] [address] Care Team Providers Care Faculty Instructor Name Role Phone Giovnani Goncalves MD Primary Care Provider Unavail able Encounter Details Date Type Department Care Team (Late st Contact Info) Description 10/11/1999 Outpatient Historical [facility],NON-PATIENT Giovanni Goncalves MD NO ADDRESS ON FILE Social History Tobacco Use Types Packs/Day Years Used Date Smoking Tobacco: Never Assessed Comments Unknown Sex and Gender Information Value Date Recorded Sex Assigned at Not on file Legal Sex Female 3:43 AM FELT CHECKER Gender Identity Not on file Sexual Orientation Not on file documented as of this encounter Plan of Treatment Not on file documented as of this encounter Visit Diagnoses Not on filedocumented in this encounter Care Teams Faculty Instructor Relationship Specialty Start Date End Date Giovanni Goncalves MD NO ADDRESS ON FILE PCP - General 06/19/00 documented as of this encounter
--- OUTSIDE RECORDS SUMMARY | 2024-11-22 09:28 | XMS_ITS | Encounter Summary ---
Author Organization [facility] Address 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
--- OUTSIDE RECORDS SUMMARY | 2024-11-22 09:28 | XMS_ITS | Encounter Summary ---
Author Organization [facility] Address [address] Attn: Epic Prelude ADT [place]SONS [address] Care Team Providers Care Sewing Machine Tester Name Role Phone Giovanni Goncalves MD Primary Care Provider Unavail able Encounter Details Date Type Department Care Team (Late st Contact Info) Description 08/31/1997 Outpatient Historical Conversion, History Giovanni Goncalves MD NO ADDRESS ON FILE Social History Tobacco Use Types Packs/Day Years Used Date Smoking Tobacco: Never Assessed Comments Unknown Sex and Gender Information Value Date Recorded Sex Assigned at Not on file Legal Sex Female 3:43 AM WAREHOUSE CLERK Gender Identity Not on file Sexual Orientation Not on file documented as of this encounter Plan of Treatment Not on file documented as of this encounter Visit Diagnoses Not on filedocumented in this encounter Care Teams Sewing Machine Tester Relationship Specialty Start Date End Date Giovanni Goncalves MD NO ADDRESS ON FILE PCP - General 06/19/00 documented as of this encounter
--- OUTSIDE RECORDS SUMMARY | 2024-11-22 09:28 | XMS_ITS | Encounter Summary ---
Author Organization [facility] Address [address] [place] [address] Care Team Providers Care Rolling Mill Operator Name Role Phone Giovanni Goncalves MD Primary Care Provider Unavail able Encounter Details Date Type Department Care Team (Late st Contact Info) Description 10/24/2004 Outpatient Historical HIS [facility] Giovanni Goncalves MD NO ADDRESS ON FILE Social History Tobacco Use Types Packs/Day Years Used Date Smoking Tobacco: Never Assessed Comments Unknown Sex and Gender Information Value Date Recorded Sex Assigned at Not on file Legal Sex Female 3:43 AM GAS ENGINE PERFORMANCE ENGINEER Gender Identity Not on file Sexual Orientation Not on file documented as of this encounter Plan of Treatment Not on file documented as of this encounter Visit Diagnoses Not on filedocumented in this encounter Care Teams Rolling Mill Operator Relationship Specialty Start Date End Date Giovanni Goncalves MD NO ADDRESS ON FILE PCP - General 06/19/00 documented as of this encounter
--- OUTSIDE RECORDS SUMMARY | 2024-11-22 09:28 | XMS_ITS | Encounter Summary ---
Author Organization [facility] Address [address] [place] [address] Care Team Providers Care Truck Driver Name Role Phone Giovanni Goncalves MD Primary Care Provider Unavail able Encounter Details Date Type Department Care Team (Latest Contact Info) Description 10/24/2004 Outpatient Historical HIS [facility] Giovanni Weiss MD NO ADDRESS ON FILE OSTEOARTHROS NOS-OTHER SITE (Primary Dx) Social History Tobacco Use Types Packs/Day Years Used Date Smoking Tobacco: Never Assessed Comments Unknown Sex and Gender Information Value Date Recorded Sex Assigned at Not on file Legal Sex Female 3:43 AM GLASS BEVELLER Gender Identity Not on file Sexual Orientation Not on file documented as of this encounter Plan of Treatment Not on file documented as of this encounter Visit Diagnoses Diagnosis Osteoarthrosis, unspecified whether generalized or localized, other specified sites- Primary documented in this encounter Care Teams Truck Driver Relationship Specialty Start Date End Date Giovanni Goncalves MD NO ADDRESS ON FILE PCP - General 06/19/00 documented as of this encounter
--- OUTSIDE RECORDS SUMMARY | 2024-11-22 09:28 | XMS_ITS | Encounter Summary ---
Author Organization [facility] Address [address] [place] [address] Care Team Providers Care Weapons Designer Name Role Phone Giovanni Goncalves MD Primary Care Provider Unavail able Encounter Details Date Type Department Care Team (Late st Contact Info) Description 10/24/2004 Outpatient Historical [facility] Giovanni Goncalves MD NO ADDRESS ON FILE Social History Tobacco Use Types Packs/Day Years Used Date Smoking Tobacco: Never Assessed Comments Unknown Sex and Gender Information Value Date Recorded Sex Assigned at Not on file Legal Sex Female 3:43 AM PROGRAM WRITER Gender Identity Not on file Sexual Orientation Not on file documented as of this encounter Plan of Treatment Not on file documented as of this encounter Visit Diagnoses Not on filedocumented in this encounter Care Teams Weapons Designer Relationship Specialty Start Date End Date Giovanni Goncalves MD NO ADDRESS ON FILE PCP - General 06/19/00 documented as of this encounter
--- OUTSIDE RECORDS SUMMARY | 2024-11-22 09:28 | XMS_ITS | Encounter Summary ---
Author Organization [facility] Address [address] [place] [address] Care Team Providers Care Renewals Specialist Name Role Phone Giovanni Goncalves MD Primary Care Provider Unavail able Encounter Details Date Type Department Care Team (Late st Contact Info) Description 10/24/2004 Outpatient Historical [facility], [address] Giovanni Goncalves MD NO ADDRESS ON FILE Social History Tobacco Use Types Packs/Day Years Used Date Smoking Tobacco: Never Assessed Comments Unknown Sex and Gender Information Value Date Recorded Sex Assigned at Not on file Legal Sex Female 3:43 AM MANUFACTURING OPERATIONS MANAGER Gender Identity Not on file Sexual Orientation Not on file documented as of this encounter Plan of Treatment Not on file documented as of this encounter Procedures Procedure Name Priority Date/Time Associated Diagnosis Comments CBC WITH DIFFERENTIAL Routine 10/24/2004 4:15 PM MANUFACTURING OPERATIONS MANAGER CBC WITH DIFFERENTIAL Routine 10/24/2004 4:15 PM MANUFACTURING OPERATIONS MANAGER SEDIMENTATION RATE Routine 10/24/2004 4: 15 PM MANUFACTURING OPERATIONS MANAGER TSH Routine 10/24/2004 4:15 PM MANUFACTURING OPERATIONS MANAGER COMPREHENSIVE METABOLIC PANEL Routine 10/24/2004 4:15 PM MANUFACTURING OPERATIONS MANAGER documented in this encounter Results * CBC WITH DIFFERENTIAL (10/24/2004 4:15 PM MANUFACTURING OPERATIONS MANAGER) NEUTROPHILS 67 45 - 70 % INTERFAC E SYSTEM LYMPHOCYTES 20 16 - 45 % INTERFAC E SYSTEM MONOCYTES 10 3 - 13 % INTERFACE SYSTEM EOSINOPHILS 2 0 - 7 % INTERFAC E SYSTEM BASOPHILS 1 0 - 2 % INTERFACE SYSTEM NEUTROPHIL ABSOLUTE 3.52 1.90 - 7.00 K/uL INTERFACE SYSTEM LYMPHOCYTE ABSOLUTE 1.05 0.70 - 4.50 K/uL INTERFACE SYSTEM MONOCYTE ABSOLUTE 0.53 0.10 - 1.30 K/uL INTERFACE SYSTEM EOSINOPHIL ABSOLUTE 0.11 0.00 - 0.70 K/uL INTERFACE SYSTEM BASOPHILS ABSOLUTE 0.03 0.00 - 0.20 K/uL INTERFACE SYSTEM 10/24/2004 4:15 PM MANUFACTURING OPERATIONS MANAGER Giovanni Goncalves MD HEMATOLOGY ORDERABLES Final Re sult INTERFACE SYSTEM Refer to clinic/hospital department * (ABNORMAL) CBC WITH DIFFERENTIAL (10/24/2004 4:15 PM MANUFACTURING OPERATIONS MANAGER) WBC 5.2 4.0 - 9.8 K/uL INTERFACE SYSTEM RBC 4.92(H) 3.90 - 4.90 M/uL INTERFACE SYSTEM HEMOGLOBIN 14.9(H) 11.8 - 14.8 g/dL INTERFACE SYSTEM HEMATOCRIT 42.9 35.5 - 44.0 % INTERFACE SYSTEM MCV 87.2 82.0 - 99.0 fL INTERFACE SYSTEM MCH 30.3 27.2 - 32.6 pg INTERFACE SYSTEM MCHC 34.7 31.5 - 35.5 % INTERFACE SYSTEM RDW 12.6 11.5 - 14.5 % INTERFACE SYSTEM RDW-STDEV 40.2 37.1 - 48.7 fL INTERFACE SYSTEM PLATELETS 218 140 - 350 K/uL INTERFACE SYSTEM MPV 9.9 9.3 - 12.4 fL INTERFACE SYSTEM 10/24/2004 4:15 PM MANUFACTURING OPERATIONS MANAGER Giovanni Goncalves MD HEMATOLOGY ORDERABLES Final Re sult INTERFACE SYSTEM Refer to clinic/hospital department * TSH (10/24/2004 4:15 PM MANUFACTURING OPERATIONS MANAGER) TSH 1.17 0.27 - 4.20 uU/mL INTERFACE SYSTEM 10/24/2004 4:15 PM MANUFACTURING OPERATIONS MANAGER Giovanni Goncalves MD CHEMISTRY ORDERABLES Final Res ult Performing Organization Address City/[facility] Co de Phone Number INTERFACE SYSTEM Refer to clinic/hospital department * SEDIMENTATION RATE (10/24/2004 4:15 PM MANUFACTURING OPERATIONS MANAGER) ESR (SEDIMENTATION RATE) 5 0 - 30 mm/hr INTERFACE SYSTEM 10/24/2004 4:15 PM MANUFACTURING OPERATIONS MANAGER us Giovanni Goncalves MD HEMATOLOGY ORDERABLES Final Re sult Performing Organization Address [facility] Phone Number INTERFACE SYSTEM Refer to clinic/hospital department * COMPREHENSIVE METABOLIC PANEL (10/24/2004 4:15 PM MANUFACTURING OPERATIONS MANAGER) GLUCOSE 95 65 - 109 mg/dL INTERFACE SYSTEM CREATININE 0.9 0.4 - 1.2 mg/dL INTERFACE SYSTEM CALCIUM 9.7 8.6 - 10.2 mg/dL INTERFACE SYSTEM AST 21 12 - 32 U/L INTERFACE SYSTEM ALKALINE PHOSPHATASE 62 35 - 104 U/L INTERFACE SYSTEM BUN 16 6 - 20 mg/dL INTERFACE SYSTEM BILIRUBIN TOTAL 0.7 0.2 - 1.0 mg/dL INTERFACE SYSTEM ALBUMIN 4.7 3.4 - 4.8 g/dL INTERFACE SYSTEM TOTAL PROTEIN 7.9 6.3 - 8.6 g/dL INTERFACE SYSTEM ALT 18 0 - 31 U/L INTERFACE SYSTEM SODIUM 141 135 - 145 mmol/L INTERFACE SYSTEM POTASSIUM 4.1 3.5 - 4.9 mmol/L INTERFACE SYSTEM CHLORIDE 103 96 - 108 mmol/L INTERFACE SYSTEM CO2 26 22 - 30 mmol/L INTERFACE SYSTEM 10/24/2004 4:15 PM MANUFACTURING OPERATIONS MANAGER us Giovanni Goncalves MD CHEMISTRY ORDERABLES Final Res ult Performing Organization Address [facility] Co de Phone Number INTERFACE SYSTEM Refer to clinic/hospital department documented in this encounter Visit Diagnoses Not on filedocumented in this encounter Care Teams Renewals Specialist Relationship Specialty Start Date End Date Giovanni Goncalves MD NO ADDRESS ON FILE PCP - General 06/19/00 documented as of this encounter
--- OUTSIDE RECORDS SUMMARY | 2024-11-22 09:28 | XMS_ITS | Encounter Summary ---
Author Organization [facility] Address [address] Attn: Epic Prelude ADT [place] [phone] Care Team Providers Care Tool Carrier Name Role Phone Giovanni Goncavles MD Primary Care Provider Unavail able Encounter Details Date Type Department Care Team (Late st Contact Info) Description 06/03/1998 Outpatient Historical Conversion, History Giovanni Goncalves MD NO ADDRESS ON FILE Social History Tobacco Use Types Packs/Day Years Used Date Smoking Tobacco: Never Assessed Comments Unknown Sex and Gender Information Value Date Recorded Sex Assigned at Not on file Legal Sex Female 3:[address] Gender Identity Not on file Sexual Orientation Not on file documented as of this encounter Plan of Treatment Not on file documented as of this encounter Visit Diagnoses Not on filedocumented in this encounter Care Teams Tool Carrier Relationship Specialty Start Date End Date Giovanni Goncalves MD NO ADDRESS ON FILE PCP - General 06/19/00 documented as of this encounter
--- OUTSIDE RECORDS SUMMARY | 2024-11-22 09:28 | XMS_ITS | Encounter Summary ---
Author Organization [facility] Address [address] [place] [address] Care Team Providers Care Lap Checker Name Role Phone Giovanni Goncalves MD Primary Care Provider Unavail able Encounter Details Date Type Department Care Team (Late st Contact Info) Description 11/26/2003 Outpatient Historical [facility] Giovanni Goncalves MD NO ADDRESS ON FILE Social History Tobacco Use Types Packs/Day Years Used Date Smoking Tobacco: Never Assessed Comments Unknown Sex and Gender Information Value Date Recorded Sex Assigned at Not on file Legal Sex Female 3:43 AM DIRECTOR AGENCY & STRATEGIC PARTNERSHIPS Gender Identity Not on file Sexual Orientation Not on file documented as of this encounter Plan of Treatment Not on file documented as of this encounter Visit Diagnoses Not on filedocumented in this encounter Care Teams Lap Checker Relationship Specialty Start Date End Date Giovanni Goncalves MD NO ADDRESS ON FILE PCP - General 06/19/00 documented as of this encounter
--- OUTSIDE RECORDS SUMMARY | 2024-11-22 09:28 | XMS_ITS | Encounter Summary ---
Author Organization [facility] Address [address] [place] [address] Care Team Providers Care Grey Roll Worker Name Role Phone Giovanni Goncalves MD Primary Care Provider Unavail able Encounter Details Date Type Department Care Team (Latest Contact Info) Description 08/30/1998 Outpatient Historical [facility] Shayna Agustin MD NO ADDRESS ON FILE Giovanni Goncalves MD NO ADDRESS ON FILE Chest pain, unspecified (Primary Dx) Social History Tobacco Use Types Packs/Day Years Used Date Smoking Tobacco: Never Assessed Comments Unknown Sex and Gender Information Value Date Recorded Sex Assigned at Not on file Legal Sex Female 3:43 AM RELATIONS COORDINATOR Gender Identity Not on file Sexual Orientation Not on file documented as of this encounter Plan of Treatment Not on file documented as of this encounter Visit Diagnoses Diagnosis Chest pain, unspecified- Primary documented in this encounter Care Teams Grey Roll Worker Relationship Specialty Start Date End Date Giovanni Goncalves MD NO ADDRESS ON FILE PCP - General 06/19/00 documented as of this encounter
--- OUTSIDE RECORDS SUMMARY | 2024-11-22 09:29 | XMS_ITS | Encounter Summary ---
Author Organization [facility] Address [address] [place] [address] Care Team Providers Care Communication Technician Name Role Phone Giovanni Goncalves MD Primary Care Provider Unavail able Encounter Details Date Type Department Care Team (Late st Contact Info) Description 10/25/2006 Outpatient Historical [facility] Giovanni Goncalves MD NO ADDRESS ON FILE Social History Tobacco Use Types Packs/Day Years Used Date Smoking Tobacco: Never Assessed Comments Unknown Sex and Gender Information Value Date Recorded Sex Assigned at Not on file Legal Sex Female 3:43 AM SENIOR HEALTH CONSULTANT Gender Identity Not on file Sexual Orientation Not on file documented as of this encounter Plan of Treatment Not on file documented as of this encounter Visit Diagnoses Not on filedocumented in this encounter Care Teams Communication Technician Relationship Specialty Start Date End Date Giovanni Goncalves MD NO ADDRESS ON FILE PCP - General 06/19/00 documented as of this encounter
--- OUTSIDE RECORDS SUMMARY | 2024-11-22 09:29 | XMS_ITS | Encounter Summary ---
Author Organization [facility] Address [address] [place] [address] Care Team Providers Care Stucco Mason Name Role Phone Giovanni Goncalves MD Primary Care Provider Unavail able Encounter Details Date Type Department Care Team (Late st Contact Info) Description 09/10/1998 Outpatient Historical [facility] Giovanni Goncalves MD NO ADDRESS ON FILE Abdominal pain, unspecified site (Primary Dx) Social History Tobacco Use Types Packs/Day Years Used Date Smoking Tobacco: Never Assessed Comments Unknown Sex and Gender Information Value Date Recorded Sex Assigned at Not on file Legal Sex Female 3:43 AM TRAVEL ACCOMMODATIONS RATER Gender Identity Not on file Sexual Orientation Not on file documented as of this encounter Plan of Treatment Not on file documented as of this encounter Visit Diagnoses Diagnosis Abdominal pain, unspecified site- Primary documented in this encounter Care Teams Stucco Mason Relationship Specialty Start Date End Date Giovanni Goncalves MD NO ADDRESS ON FILE PCP - General 06/19/00 documented as of this encounter
--- OUTSIDE RECORDS SUMMARY | 2024-11-22 09:29 | XMS_ITS | Encounter Summary ---
Author Organization [facility] Address [address] [place] [address] Care Team Providers Care Production Analyst Name Role Phone Giovanni Goncalves MD Primary Care Provider Unavail able Encounter Details Date Type Department Care Team (Latest Contact Info) Description 10/25/2006 Outpatient Historical [facility] Giovanni Weiss MD NO ADDRESS ON FILE Unspecified Chest Pain (Primary Dx) Social History Tobacco Use Types Packs/Day Years Used Date Smoking Tobacco: Never Assessed Comments Unknown Sex and Gender Information Value Date Recorded Sex Assigned at Not on file Legal Sex Female 3:43 AM CHILD MONITOR Gender Identity Not on file Sexual Orientation Not on file documented as of this encounter Plan of Treatment Not on file documented as of this encounter Procedures Procedure Name Priority Date/Time Associated Diagnosis Comments TSH Routine 10/25/2006 1:26 PM CHILD MONITOR T4 FREE Routine 10/25/2006 1:26 PM CHILD MONITOR CK Routine 10/25/2006 1:26 PM CHILD MONITOR COMPREHENSIVE METABOLIC PANEL Routine 10/25/2006 1:26 PM CHILD MONITOR documented in this encounter Results * CK (10/25/2006 1:26 PM CHILD MONITOR) CK 55 10 - 145 U/L INTERFACE SYSTEM 10/25/2006 1:26 PM CHILD MONITOR us Giovanni Goncalves MD CHEMISTRY ORDERABLES Edited INTERFACE SYSTEM Refer to clinic/hospital department * TSH (10/25/2006 1:26 PM CHILD MONITOR) TSH 1.05 0.27 - 4.20 uU/mL INTERFACE SYSTEM 10/25/2006 1:26 PM CHILD MONITOR Giovanni Goncalves MD CHEMISTRY ORDERABLES Edited Performing Organization Address City/[facility]/ZIP Co de Phone Number INTERFACE SYSTEM Refer to clinic/hospital department * T4 FREE (10/25/2006 1:26 PM CHILD MONITOR) T4 FREE 1.4 0.9 - 1.7 ng/dL INTERFACE SYSTEM 10/25/2006 1:26 PM CHILD MONITOR us Giovanni Goncalves MD CHEMISTRY ORDERABLES Edited Performing Organization Address City/[facility] Co de Phone Number INTERFACE SYSTEM Refer to clinic/hospital department * COMPREHENSIVE METABOLIC PANEL (10/25/2006 1:26 PM CHILD MONITOR) GLUCOSE 97 65 - 99 mg/dL INTERFACE SYSTEM CREATININE 0.90 0.51 - 0.95 mg/dL INTERFACE SYSTEM CALCIUM 9.7 8.4 - 10.2 mg/dL INTERFACE SYSTEM ALKALINE PHOSPHATASE 60 35 - 104 U/L INTERFACE SYSTEM AST 20 12 - 32 U/L INTERFACE SYSTEM ALT 14 0 - 31 U/L INTERFACE SYSTEM TOTAL PROTEIN 7.9 6.3 - 8.6 g/dL INTERFACE SYSTEM ALBUMIN 4.8 3.4 - 4.8 g/dL INTERFACE SYSTEM BILIRUBIN TOTAL 0.6 0.2 - 1.0 mg/dL INTERFACE SYSTEM BUN 18 6 - 20 mg/dL INTERFACE SYSTEM SODIUM 141 135 - 145 mmol/L INTERFACE SYSTEM POTASSIUM 3.9 3.5 - 4.9 mmol/L INTERFACE SYSTEM CHLORIDE 104 96 - 108 mmol/L INTERFACE SYSTEM CO2 26 22 - 30 mmol/L INTERFACE SYSTEM GFR, >60 >=60 mL/min/1.7 sq meter INTERFACE SYSTEM GFR >60 >=60 mL/min/1.7 sq meter INTERFACE SYSTEM Comment: Estimated GFR rate interpretative information for both Americans and non- Americans is available on the [facility] Intranet at: [email or web address] Select: Lab Policies and Procedures Select: Reference Ranges - GFR 10/25/2006 1:26 PM CHILD MONITOR us Giovanni Goncalves MD CHEMISTRY ORDERABLES Edited INTERFACE SYSTEM Refer to clinic/hospital department documented in this encounter Visit Diagnoses Diagnosis Chest pain, unspecified- Primary documented in this encounter Care Teams Production Analyst Relationship Specialty Start Date End Date Giovanni Goncalves MD NO ADDRESS ON FILE PCP - General 06/19/00 documented as of this encounter
--- OUTSIDE RECORDS SUMMARY | 2024-11-22 09:29 | XMS_ITS | Encounter Summary ---
Author Organization [facility] Address [address] [place] [address] Care Team Providers Care Greeter Guest Services Name Role Phone Giovanni Goncalves MD Primary Care Provider Unavail able Encounter Details Date Type Department Care Team (Latest Contact Info) Description 11/01/1999 Outpatient Historical [facility] Jaya Carrera MD NO ADDRESS ON FILE Pain in limb (Primary Dx) Social History Tobacco Use Types Packs/Day Years Used Date Smoking Tobacco: Never Assessed Comments Unknown Sex and Gender Information Value Date Recorded Sex Assigned at Not on file Legal Sex Female 3:43 AM PATIENT RELATIONS SPECIALIST Gender Identity Not on file Sexual Orientation Not on file documented as of this encounter Plan of Treatment Not on file documented as of this encounter Visit Diagnoses Diagnosis Pain in limb- Primary documented in this encounter Care Teams Greeter Guest Services Relationship Specialty Start Date End Date Giovanni Goncalves MD NO ADDRESS ON FILE PCP - General 06/19/00 documented as of this encounter
--- OUTSIDE RECORDS SUMMARY | 2024-11-22 09:29 | XMS_ITS | Encounter Summary ---
Author Organization [facility] Address [address] [place] [address] Care Team Providers Care Medication Manager Name Role Phone Giovanni Goncalves MD Primary Care Provider Unavail able Encounter Details Date Type Department Care Team (Latest Contact Info) Description 02/29/2000 Outpatient Historical [facility] Giovanni Goncalves MD NO ADDRESS ON FILE Arthropathy, unspecified, site unspecified (Primary Dx) Social History Tobacco Use Types Packs/Day Years Used Date Smoking Tobacco: Never Assessed Comments Unknown Sex and Gender Information Value Date Recorded Sex Assigned at Not on file Legal Sex Female 3:43 AM FLIGHT ENGINEER HELICOPTER Gender Identity Not on file Sexual Orientation Not on file documented as of this encounter Plan of Treatment Not on file documented as of this encounter Visit Diagnoses Diagnosis Arthropathy, unspecified, site unspecified- Primary documented in this encounter Care Teams Medication Manager Relationship Specialty Start Date End Date Giovanni Goncalves MD NO ADDRESS ON FILE PCP - General 06/19/00 documented as of this encounter
--- OUTSIDE RECORDS SUMMARY | 2024-11-22 09:29 | XMS_ITS | Clinical Summary ---
Author Organization [facility] Address [address] Attn: Epic Prelude ADT [place]IA PARSONS [address] Care Team Providers Care Flume Worker Name Role Phone Giovanni Goncalves MD Primary Care Provider Unavail able Social History Tobacco Use Types Packs/Day Years Used Date Smoking Tobacco: Never Assessed Comments Unknown Sex and Gender Information Value Date Recorded Sex Assigned at Not on file Legal Sex Female 3:43 AM LOAN INTERVIEWER Gender Identity Not on file Sexual Orientation Not on file Plan of Treatment Health Maintenance Due Date Last Done Comments DTAP/TDAP/TD VACCINES (1 - Tdap) 1968 COLORECTAL SCREENING 1994 FIT-DNA Q 3 years 1994 Flex Sig/CT Colonography Q 5 years 1994 PNEUMOCOCCAL VACCINE 65+ YEA RS (1 of 1 - PCV) 1999 ZOSTER VACCINE (1 of 2) 1999 Colorectal Cancer Screening 04/23/2002 FIT/FOBT Q 1 year 04/23/2002 04/23/2001, 10/11/1999 OSTEOPOROSIS SCREENING 2014 INFLUENZA VACCINE (#1) 2024 RSV VACCINE (60+ or ) (1 - 1-dose 75+ series) 2024 Care Teams Flume Worker Relationship Specialty Start Date End Date Giovanni Goncalves MD NO ADDRESS ON FILE PCP - General 06/19/00
--- OUTSIDE RECORDS SUMMARY | 2024-11-22 09:29 | XMS_ITS | Encounter Summary ---
Author Organization [facility] Address [address] [facility] Attn: Epic Prelude ADT JESSICA ADKINS [place] [address] Care Team Providers Care Assembler Installer General Name Role Phone Giovanni Goncalves MD Primary Care Provider Unavail able Encounter Details Date Type Department Care Team (Late st Contact Info) Description 09/03/1998 Outpatient Historical Giovanni Goncalves MD NO ADDRESS ON FILE Social History Tobacco Use Types Packs/Day Years Used Date Smoking Tobacco: Never Assessed Comments Unknown Sex and Gender Information Value Date Recorded Sex Assigned at Not on file Legal Sex Female 3:43 AM DISPLAY FABRICATION SUPERVISOR Gender Identity Not on file Sexual Orientation Not on file documented as of this encounter Plan of Treatment Not on file documented as of this encounter Visit Diagnoses Not on filedocumented in this encounter Care Teams Assembler Installer General Relationship Specialty Start Date End Date Giovanni Goncalves MD NO ADDRESS ON FILE PCP - General 06/19/00 documented as of this encounter
--- OUTSIDE RECORDS SUMMARY | 2024-11-22 09:29 | XMS_ITS | Encounter Summary ---
Author Organization [facility] Address [address] [place] [address] Care Team Providers Care Litigation Coordinator Name Role Phone Giovanni Goncalves MD Primary Care Provider Unavail able Encounter Details Date Type Department Care Team (Late st Contact Info) Description 10/11/1999 Outpatient Historical [facility] Giovanni Goncalves MD NO ADDRESS ON FILE Social History Tobacco Use Types Packs/Day Years Used Date Smoking Tobacco: Never Assessed Comments Unknown Sex and Gender Information Value Date Recorded Sex Assigned at Not on file Legal Sex Female 3:43 AM AIRCRAFT PART ASSEMBLER Gender Identity Not on file Sexual Orientation Not on file documented as of this encounter Plan of Treatment Not on file documented as of this encounter Visit Diagnoses Not on filedocumented in this encounter Care Teams Litigation Coordinator Relationship Specialty Start Date End Date Giovanni Goncalves MD NO ADDRESS ON FILE PCP - General 06/19/00 documented as of this encounter
--- OUTSIDE RECORDS SUMMARY | 2024-11-22 09:29 | XMS_ITS | Encounter Summary ---
Author Organization [facility] Address [address] [place] [address] Care Team Providers Care Buddhist Monk Name Role Phone Giovanni Goncalves MD Primary Care Provider Unavail able Encounter Details Date Type Department Care Team (Latest Contact Info) Description 12/13/1999 Outpatient Historical [facility] Noam Glynn MD Arthropathy, unspecified, site unspecified (Primary Dx) Social History Tobacco Use Types Packs/Day Years Used Date Smoking Tobacco: Never Assessed Comments Unknown Sex and Gender Information Value Date Recorded Sex Assigned at Not on file Legal Sex Female 3:43 AM SENIOR BUSINESS OBJECTS DEVELOPER Gender Identity Not on file Sexual Orientation Not on file documented as of this encounter Plan of Treatment Not on file documented as of this encounter Visit Diagnoses Diagnosis Arthropathy, unspecified, site unspecified- Primary documented in this encounter Care Teams Buddhist Monk Relationship Specialty Start Date End Date Giovanni Goncalves MD NO ADDRESS ON FILE PCP - General 06/19/00 documented as of this encounter
--- OUTSIDE RECORDS SUMMARY | 2024-11-22 09:29 | XMS_ITS | Encounter Summary ---
Author Organization [facility] Address 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
--- OUTSIDE RECORDS SUMMARY | 2024-11-22 09:32 | XMS_ITS | Encounter Summary ---
Author Organization [facility] Address [address] [place] [address] Care Team Providers Care Commercial Real Estate Agent Name Role Phone Giovanni Mar MD Primary Care Provider [phone] Zev Worthy MD Primary Care Provider [phone] Encounter Details Date Type Department Care Team (Late st Contact Info) Description 01/03/2016 Abstract [facility] CONVERSION [address] 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 [address] [place], [place] [id number] Brady Barros NP [facility] [address] [place] [address] documented as of this encounter Visit Diagnoses Not on filedocumented in this encounter Additional Health Concerns Infection Onset Date Last Indicated Resolved Time C. difficile 10/21/2018 10/21/2018 05/13/2021 10:0 9 AM CDT documented as of this encounter Care Teams Commercial Real Estate Agent Relationship Specialty Start Date End Date Giovanni Mar MD [address] [place] [address] PCP - General INTERNAL MEDICINE 03/11/19 08/27/23 Zev Worthy MD [address] [place] [address] PCP - General FAMILY PRACTICE 08/28/23 documented as of this encounter
--- OUTSIDE RECORDS SUMMARY | 2024-11-22 09:32 | XMS_ITS | Encounter Summary ---
Author Organization [facility] Address [address] [place] [address] Care Team Providers Care Information Security Specialist Name Role Phone Zev Worthy MD Primary Care Provider [phone] Encounter Details Date Type Department Care Team (Late st Contact Info) Description 10/14/2024 [facility] [address] [address] Stacy Flanagan MA Social History Tobacco Use Types Packs/Day Years Used Date Smoking Tobacco: Never Smokeless Tobacco: Never [facility] Utilities Answer Date Recorded In the past 12 months has [facility] electric, gas, oil, or water company threatened to shut off services in your home? No 08/29/2023 Humiliation, Afraid, Rape, and Kick questionnair e Answer Date Recorded Within the last year, have y ou been afraid of your partner or ex-partner? No 08/29/2023 Within the last year, have y ou been humiliated or emotionally abused in other ways by your partner or ex-partner? No Within the last year, have y ou been kicked, hit, slapped, or otherwise physically hurt by your partner or ex-partner? No 08/29/2023 Within the last year, have y ou been raped or forced to have any kind of sexual activity by your partner or ex-partner? No 08/29/2023 Overall Financial Resource Strain (CARDIA) Answe r Date Recorded How hard is it for you to pa y for the very basics like food, housing, medical care, and heating? Not hard at all 08/29/2023 Hunger Vital Sign Answer Date Recorded Within the past 12 months, y ou worried that your food would run out before you got the money to buy more. Never true 08/29/20 23 Within the past 12 months, t he food you bought just didn't last and you didn't have money to get more. Never true 08/29/2023 PRAPARE - Transportation Answer Date Re corded In the past 12 months, has l ack of transportation kept you from medical appointments or from getting medications? No 08/02 In the past 12 months, has l ack of transportation kept you from meetings, work, or from getting things needed for daily living? No 08/29/2023 Housing Stability Vital Sign Answer Raymundo e Recorded In the last 12 months, was t here a time when you were not able to pay the mortgage or rent on time? No 08/29/2023 In the last 12 months, how many places have you lived? 1 08/29/2023 In the last 12 months, was t here a time when you did not have a steady place to sleep or slept in a detention (including now)? 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 Answer Date of Assessment Author Status No 08/29/2023 6:06 PM Danyell Johnson R N Active * Do you have serious difficulty walking or climbing stairs? Answer Date of Assessment Author Status No 08/29/2023 6:06 PM Danyell Johnson R N Active * Do you have difficulty dressing or bathing? Answer Date of Assessment Author Status No 08/29/2023 6:06 PM Danyell Johnson R N Active * Because of a physical, mental, or emotional condition, do you have difficulty doing errands alone such as visiting a doctor's office or shopping? Answer Date of Assessment Author Status No 08/29/2023 6:06 PM Danyell Johnson R N Active documented as of this encounter Mental Status * Because of a physical, mental, or emotional condition, do you have serious difficulty concentrating, remembering, or making decisions? Answer Entry Date Author Status No 08/29/2023 6:06 PM Danyell Johnson R N Active documented in this encounter Plan of Treatment Upcoming Encounters Date Type Department Care Team (Late st Contact Info) Description 12/19/2024 8:00 AM CDT Appointment [facility] [address] [place], [place] [id number] Janessa Marsh PA-C [address] [place], [place] [id number] 04/13/2025 8:45 AM CDT Office Visit [facility] [facility] [address] [place], [place] [phone] Brady Barros, VINCENT [facility] [address] [place], [place] [phone] documented as of this encounter Goals Goal Patient Goal Type Associated Problems Recent Progress Patient-Stated? Author Health - patient able to perform ADLs independently General No Myranda Sanchez, RN Patient will return to prior living situation and remain independent in ADLs upon discharge from hospital Lifestyle No Mireya Don, RN documented as of this encounter Procedures Procedure Name Priority Date/Time Associated Diagnosis Comments COMPREHENSIVE METABOLIC PANEL Routine 05/27/2024 LIPID PANEL Routine 04/22/2024 CBC, MANUAL DIFF Routine 04/22/2024 THYROID STIM HORMONE TSH Routine 04/22/2024 VITAMIN D, 25 OH Routine 04/22/2024 documented in this encounter Results * COMPREHENSIVE METABOLIC PANEL (05/27/2024) Pathologist [facility] SODIUM S/P/B 140 GLUCOSE 95 mg/dL BUN 20 CALCIUM S/P/B 9.7 POTASSIUM S/P/B 4.4 CHLORIDE S/P/B 105 us Default History Genericprovider LABORATORY Final Result * THYROID STIM HORMONE TSH (04/22/2024) Pathologist [facility] TSH 1.42 us Default History Genericprovider LABORATORY Final Result * VITAMIN D, 25 OH (04/22/2024) Pathologist [facility] VITAMIN D 25 HYDROXY S/P/B 59 04/22/2024 us Default History Genericprovider LABORATORY Final Result * LIPID PANEL (04/22/2024) Pathologist [facility] CHOLESTEROL 127 TRIGLYCERIDES 112 HDL 51 LDL (CALCULATED) 56 us Default History Genericprovider LABORATORY Final Result * CBC, MANUAL DIFF (04/22/2024) Pathologist [facility] WBC 4.6 HGB 14.0 HCT 42.5 PLT 214 us Default History Genericprovider LABORATORY Final Result documented in this encounter Visit Diagnoses Not on filedocumented in this encounter Care Teams Information Security Specialist Relationship Specialty Start Date End Date Zev Worthy MD [address] [place] [id number] PCP - General FAMILY PRACTICE 08/28/23 documented as of this encounter
--- OUTSIDE RECORDS SUMMARY | 2024-11-22 09:32 | XMS_ITS | Encounter Summary ---
Author Organization [facility] Address [facility] [address] [place] [address] Care Team Providers Care Claims Coordinator Name Role Phone Zev Worthy MD Primary Care Provider [phone] Encounter Details Date Type Department Care Team (Late st Contact Info) Description 11/26/2023 Arachno Message Enc [place] [facility], [place] [id number] Brandon Deutsch MD Heart monitor result Social History Tobacco Use Types Packs/Day Years Used Date Smoking Tobacco: Never Smokeless Tobacco: Never [facility] Utilities Answer Date Recorded In the past 12 months has [facility] electric, gas, oil, or water IM5 threatened to shut off services in your [...] place to sleep or slept in a assisted (including now)? 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 Answer Entry Date Author Status No 08/29/2023 6:06 PM NAVAL AIRCREWMAN HELICOPTER Danyell Garibay R N Active documented in this encounter Progress Notes * Maryan Talbot RN - 11/26/2023 4:36 PM CST Please advise. L AIRCREWMAN HELICOPTER documented in this encounter Plan of Treatment Upcoming Encounters Date Type Department Care Team (Late st Contact Info) Description 12/19/2024 8:00 AM CDT Appointment [facility] [address] [place], [place] [phone] Janessa Marsh PA-C [address] [place], [place] [address] [place], [place] [phone] 04/13/2025 8:45 AM CDT [facility] [address] [place] [address] Brady Barros, VINCENT [facility] [address] [place] [address] documented as of this encounter Goals Goal Patient Goal Type Associated Problems Recent Progress Patient-Stated? Author Health - patient able to perform ADLs independently General No Myranda Sanchez RN Patient will return to prior living situation and remain independent in ADLs upon discharge from hospital Lifestyle No Mireya Don RN documented as of this encounter Visit Diagnoses Not on filedocumented in this encounter Care Teams Claims Coordinator Relationship Specialty Start Date End Date Zev Worthy MD [address] [place] [address] PCP - General FAMILY PRACTICE 08/28/23 documented as of this encounter
--- OUTSIDE RECORDS SUMMARY | 2024-11-22 09:33 | XMS_ITS | Continuity of Care Document ---
Author Organization [facility] Address [address] [place] [address] [address] [place] [address] Phone Care Team Providers Care Director Instrumentation Name Role Phone Mady OTR/L, CHT, Omayra Unavailable Unavailable Procedures Procedure Date OT EVALUATION THERAPEUTIC EXERCISES Hand Advance Directives Directive Yes / No Effective Date File Name No Information Encounters Encounter Description Practice Location Reason(s) For Visit Diagnoses Date Provider Providers Copied on Encounter [facility], [address] [place] [address], [place], [place], [id number], tel:[phone] [place] Pain in right handOther specified soft tissue disordersStiffn ess of right hand, not elsewhere classifiedUnil primary osteoarth of first carpometacarp joint, r handFinger-join t replacement of right handAftercare following joint replacement surgery [address] Mady Cutler. [address] [facility], [address], [place], [place], [facility], . tel:[phone] Referring Provider: Dani Terrell, [address] [facility] [address], [place], [address]. tel:[phone] Family History Family Member Type Diagnosis Age At Onset No Information Payers Payer name Insurance type Covered republican ID Authoriza tijules(s) AARP Medicare Complete CI [id number] Social History Type Description Quantity Date Captured [...]
--- OUTSIDE RECORDS SUMMARY | 2024-11-22 09:33 | XMS_ITS | Clinical Summary ---
Author Organization [facility] Address [address] [place] [address] Care Team Providers Care Patient Partner Name Role Phone Zev Worthy MD Primary Care Provider [phone] Allergies Active Allergy Reactions Criticality Noted Date Comments Erythromycin Rash Low 05/10/2021 Medications famotidine 20 MG tabletIndicatio ns:GERD Take 1 tablet (20 mg total) by mouth daily. Indications: GERD 1 Active pantoprazole EC 40 MG tabletIndicatio ns:GERD Take 1 tablet (40 mg total) by mouth daily. Indications: GERD 1 Active Glucosamine-Cho ndroitin (GLUCOSAMINE CHONDR COMPLEX OR)Indications: Supplement / Joint Health Take 1 tablet by mouth daily. Indications: Supplement / Joint Health 1 Active calcium citrate-vitamin D 200-250 MG-UNIT TabIndications: Supplement Take 1 tablet by mouth daily. Indications: Supplement 1 Active Cholecalciferol (VITAMIN D) 125 MCG (5000 UT) CapIndications: Nutritional Support Take 1 capsule by mouth daily. Indications: Nutritional Support 1 Active meloxicam (MOBIC) 15 MG tablet Take 1 tablet (15 mg total) by mouth daily. 3 Active nitroglycerin (NITROSTAT) 0.[address] 1 tablet (0.4 mg total) under the tongue every 5 (five) minutes as needed for Chest Pain. 5 tablet 3 Active atorvastatin (LIPITOR) 40 MG tablet Take 1 tablet (40 mg total) by mouth nightly at bedtime. 30 tablet 4 Active fluticasone propionate (FLONASE) 50 MCG/ACT nasal spray 1 spray by Each Nostril route daily. 4 Active aspirin EC (ECOTRIN) 81 MG tablet Take 1 tablet (81 mg total) by mouth daily. 90 tablet 3 5 Active Active Problems Problem Noted Date Diagnosed Date Dyspareunia in female 05/21/2024 SVT (supraventricular tachycardia) ([facility]) 08/29/2023 Tachycardia 08/29/2023 Back pain 06/22/2022 History of total knee arthroplasty, left 022 Impaired mobility 05/12/2021 Pelvis fracture ([facility]) 05/10/2021 Acute bronchitis 09/27/2015 Sarcoidosis of lung ([facility]) 09/27/2015 Fatigue 05/20/2015 Plantar fasciitis 01/05/2015 Idiopathic osteoporosis 12/03/2014 Abnormal mammogram 05/05/2014 Menopausal symptoms 03/11/2013 Palpitations 06/24/2010 Resolved Problems Problem Noted Date Diagnosed Date Resolved Date Total knee replacement status, right 05/29/2022 05/31/2022 Encounter for preventive health examination 09/21/2012 05/16/2021 Encounters Date Type Department Care Team Description 10/14/2024 9:45 AM INSTRUMENTS SALES REPRESENTATIVE Office Visit [facility] [address] [address] Alonso Lyon MD Heart Problem 10/14/2024 Abstract [facility] [address] [address] Stacy Flanagan MA 10/14/2024 Travel from Last 3 Months Immunizations Name Administration Dates Next Due Influenza (Generic) 05/25/2015,07/17/2013 Influenza Adult (Generic) 07/23/2014 Pneumococcal (Pneumovax 23) 05/25/2015 Td (Tenivac) preservative free 07/12/2012 Family History Medical History Relation Comments Breast Cancer Maternal Grandmother DX @ [facility] N AGE Relation Status Comments Maternal Grandmother Social History Tobacco Use Types Packs/Day Years Used Date Smoking Tobacco: Never Smokeless Tobacco: Never Tobacco Cessation:Counseling Given: Not Answered [facility] Utilities Answer Date Recorded In the past 12 months has th e electric, gas, oil, or water company threatened [...] place to sleep or slept in a correction (including now)? No 08/29/2023 Comments No Sex and Gender Information Value Date Recorded Sex Assigned at Female 10/14/2024 9:22 AM INSTRUMENTS SALES REPRESENTATIVE Legal Sex Female 8:16 PM CDT Gender Identity Not on file Sexual Orientation Not on file Last Filed Vital Signs Vital Sign Reading Time Taken Comments Blood Pressure 116/80 10/14/2024 9:36 AM INSTRUMENTS SALES REPRESENTATIVE Pulse 51 10/14/2024 9:36 AM INSTRUMENTS SALES REPRESENTATIVE Temperature 36.6 C (97.8 F) 09/30/2023 1:12 PM INSTRUMENTS SALES REPRESENTATIVE Respiratory Rate 16 09/30/2023 3:50 PM INSTRUMENTS SALES REPRESENTATIVE Oxygen Saturation 100% 10/14/2024 9:36 AM INSTRUMENTS SALES REPRESENTATIVE Inhaled Oxygen Concentration - - Weight 79.8 kg (176 lb) 10/14/2024 9:36 AM INSTRUMENTS SALES REPRESENTATIVE Height 170.2 cm (5' 7 ) 10/14/2024 9:36 AM INSTRUMENTS SALES REPRESENTATIVE Body Mass Index 27.57 10/14/2024 9:36 AM INSTRUMENTS SALES REPRESENTATIVE Plan of Treatment Upcoming Encounters Date Type Department Care Team (Late st Contact Info) Description 12/19/2024 8:00 AM CDT Appointment [facility] [address] [place] [address] Eric Fuentes PA-C [address] [place] [address] [address] [place], [place] [id number] 04/13/2025 8:45 AM CDT [facility] [address] [place] [address] Brady Barros NP [facility] [address] [place] [address] Health Maintenance Due Date Last Done Comments Colorectal Cancer Screening Colonoscopy (10 Years) 1950 Hepatitis C 1967 DTaP, Tdap and Td Vaccines ( 1 - Tdap) 07/13/2012 07/12/2012 Zoster Vaccines (1 of 2) 07/20/2013 Annual Medicare Wellness Visit 2014 Pneumococcal Vaccine: 65+ Years (2 of 2 - PCV) 05/25/2016 05/25/2015 RSV Immunization or 60+ Years (1 - 1-dose 75+ series) 2024 COVID-19 Vaccine (2023-2 5 season) 2024 Influenza Adult (#1) 2024 05/25/2015, 07/23/2014, 07/17/2013 Dexa Scan (General) Completed 05/20/2024, 07/27/2021 Meningococcal B Vaccine Aged Out No l onger eligible based on patient's age to complete this topic Meningococcal Vaccine Aged Out No allison alma rosa eligible based on patient's age to complete this topic RSV Immunizations Under 20 Months Aged Out No longer eligible b ased on patient's age to complete this topic Goals Goal Patient Goal Type Associated Problems Recent Progress Patient-Stated? Author Health - patient able to perform ADLs independently General No Myranda Sanchez, RN Patient will return to prior living situation and remain independent in ADLs upon discharge from hospital Lifestyle No Mireya Don, ice cream chef Procedure Name Priority Date/Time Associated Diagnosis Comments BONE DENSITY/DEXA Routine 05/20/2024 1:1 6 PM CDT Other primary ovarian failure Age-related osteoporosis without current pathological fracture from Last 3 Months or Most Recently Relevant to Health Maintenance Results * BONE DENSITY/DEXA (05/20/2024 1:16 PM CDT) Anatomical Region Laterality Modality Bone Bone Density 05/20/2024 10:2 9 PM CDT Impressions 05/20/2024 10:30 PM CDT Impression: Low bone mass (osteopenia). Referred By: ERIC FUENTES Interpreted By: Diallo Green DO, 05/20/2024 10:29 PM Narrative 05/20/2024 10:30 PM CDT Examination: DEXA Bone densitometry Clinical history: Postmenopausal. Osteoporosis screening. Technique: DEXA bone minimal density evaluation was performed in the AP projection over the lumbar spine and over both hips in the AP projection utilizing standard imaging techniques. COMPARISON: None. Assessment: The BMD measured at the AP spine L1-L4 is 1.020 g/cm2 with a T-score of -0.2 and a Z-Score of 2.2. The BMD of the total left femur is 0.806 g/cm2, the femoral neck measures 0.734 g/cm2, with a T-score of -1.1 and a Z-Score of 0.7. The BMD of the total right femur is 0.827 g/cm2, the femoral neck measures 0.696 g/cm2, with a T-score of -1.4 and a Z-Score of 0.7. Based upon the above measurements, the patient has low bone mass. Per FRAX, the patient's ten-year risk of major osteoporotic fracture is 11%. The 10 year risk of hip fracture is 2.1%. Based on these results, a followup exam is recommended in 2 years or sooner if clinically indicated. Procedure Note Diallo Green DO - 05/20/2024 Examination: DEXA Bone densitometry Clinical history: Postmenopausal. Osteoporosis screening. Technique: DEXA bone minimal density evaluation was performed in the APprojection over the lumbar spine and over both hips in the AP projectionutilizing standard imaging techniques. COMPARISON: None. Assessment: The BMD measured at the AP spine L1-L4 is 1.020 g/cm2 with a T-score of-0.2 and a Z-Score of 2.2. The BMD of the total left femur is 0.806 g/cm2, the femoral neck measures0.734 g/cm2, with a T-score of -1.1 and a Z-Score of 0.7. The BMD of the total right femur is 0.827 g/cm2, the femoral neck measures0.696 g/cm2, with a T-score of -1.4 and a Z-Score of 0.7. Based upon the above measurements, the patient has low bone mass. Per FRAX, the patient's ten-year risk of major osteoporotic fracture is11%. The 10 year risk of hip fracture is 2.1%. Based on these results, a followup exam is recommended in 2 years orsooner if clinically indicated. Impression: Low bone mass (osteopenia). Referred By: ERIC FUENTES Interpreted By: Diallo Green DO, 05/20/2024 10:29 PM Eric VIDALA Final Resu lt from Last 3 Months or Most Recently Relevant to Health Maintenance Insurance [facility] Advance Directives * Full Code (Latest Code Status on File) Date Activated Date Inactivated Comments 08/31/2023 8:52 AM 08/31/2023 3:31 PM * Full Code Date Activated Date Inactivated Comments 08/29/2023 4:40 PM 08/31/2023 8:52 AM * Full Code Date Activated Date Inactivated Comments 05/23/2021 9:54 PM 08/28/2023 4:51 PM * Full Code Date Activated Date Inactivated Comments 05/11/2021 7:04 PM 05/18/2021 3:50 PM * Full Code Date Activated Date Inactivated Comments 05/11/2021 6:03 PM 05/11/2021 7:04 PM Care Teams Patient Partner Relationship Specialty Start Date End Date Zev Worthy MD [address] [place] [id number] PCP - General FAMILY PRACTICE 08/28/23
[2024-11-22 09:37] VITALS: BP 118/73; PULSE 87; RESP 18; TEMP 36.3; O2SAT 100
--- NOTE | 2024-11-22 09:42 | ED_ITS ---
HPI - Extremity Injury (Lower) General Chief Complaint: Extremity Injury, Lower Stated Complaint: fall and foot pain Time Seen by Provider: 11/22/24 09:53 Source: patient Mode of arrival: ambulatory Limitations: no limitations History of Present Illness HPI Narrative: 74 y/o female presented for c/o right foot pain and bruising following an injury yesterday. States her foot fell asleep while she was sitting, and when she stood up she rolled the ankle and fell on the floor. Denies any other injury. States she has been able to walk on it but reports pain. Pain and bruising worse to the outer aspect of the foot. Denies significant swelling or deformity, denies numbness, or weakness. Related Data Home Medications ?Medication ?Instructions ?Recorded ?Confirmed ?Last Taken ?Type glucosamine HCl 500 mg tablet 1,000 mg PO DAILY 04/10/22 07/16/24 05/05/22 History calcium 315 mg (as 1 tablet PO BID 04/25/22 07/16/24 05/05/22 History citrate)-vitamin D3 5 mcg (200 unit) tablet (Calcium Citrate + D) cholecalciferol (vitamin D3) 50 100 mcg PO DAILY 04/25/22 07/16/24 05/05/22 History mcg (2,000 unit) tablet cyanocobalamin (vitamin B-12) 2,500 mcg PO DAILY 04/25/22 07/16/24 05/05/22 History 2,500 mcg tablet psyllium husk 0.4 gram capsule 0.4 g PO DAILY 12/21/22 07/16/24 Unknown History (Daily Fiber) nitroglycerin 0.4 mg sublingual 0.4 mg sublingual Q5M PRN 09/11/23 07/16/24 Unknown History tablet Allergies Allergy/AdvReac Type Severity Reaction Status Date / Time erythromycin base Allergy Mild Rash Verified 11/22/24 09:33 Review of Systems 2 Review of Systems: CONSTITUTIONAL: Denies body aches, fever, chills CARDIOVASCULAR: Denies chest pain, palpitations, or edema. RESPIRATORY: Denies cough or dyspnea. SKIN: Denies rash, itching, or wounds. MUSCULOSKELETAL: Reports right foot pain NEUROLOGIC: Denies headache, numbness, tingling, or weakness. All systems reviewed & are unremarkable except as noted in HPI and below PMFSH Past Medical History Medical History Narrow complex tachycardia Arrhythmia GERD (gastroesophageal reflux disease) Lumbar spondylolysis Bunion of left foot Osteoporosis Anxiety Pelvis fracture, right Arthritis Depression Right knee DJD Left knee DJD Surgical History Surgical History History of bilateral cataract extraction Oct and Nov 2023 History of knee replacement 2021 left Hx of tonsillectomy H/O colonoscopy 07/06/2016, Dr. Tolentino, repeat 10 years History of 1976, 1978, & 1980 History of eyelid surgery Ptosis- Dr. Sandhu Family History Family History Father Lung cancer Grandparent Breast cancer Alcoholism Mother Dementia Son Depression Anxiety Other Family history of arthritis Family history of malignant neoplasm Social History Social History Social History: 07/16/24 very confident with medical forms. Smoking status: Never smoker Second hand tobacco smoke exposure: Yes Additional smoking assessment comments: DENIES ANY FORM OF TOBACCO USE Alcohol intake: current Drinks per week: 2 Alcohol use details: WINE Substance use: never Do You Feel Safe in your Home?: Yes Lack of Transportation: No Lack of Food: Never True Current Housing: I Have Housing Concerned About Future Housing: No Difficulty Paying Gas/Electric Bills: No Difficulty Paying for Meds: No Currently Unemployed: No Education: Bachelor's Degree Difficulty w/ Childcare or Family Care: No Living arrangements: with family Occupation/Education: retired Gender identity (if verbalized by the patient): Female Sexual Orientation (if Verbalized by the Patient): Straight or Heterosexual Spiritual care concerns: No Agree to blood products: Yes Comments At time of signature, I have reviewed and agree with nursing past medical, surgical, social and family history unless otherwise noted. Please see nursing chart for further information. There is no relevant family history pertinent to the presenting complaint Exam 2 Narrative: GENERAL: Well-appearing CHEST: Speaks in full sentences. No respiratory distress. HEART: Regular rate and rhythm. Normal and equal peripheral pulses. EXTREMITIES: Right foot has normal strength and sensation, normal range of motion at ankle and toes. Lateral foot with ecchymosis, point tenderness to 4thand 5th metatarsals. No open wounds, or obvious deformity; pulse palpable and equal bilaterally, skin warm, dry, pink. Capillary refill less than 3 seconds. SKIN: Warm, dry, no rash. NEURO: Alert and oriented x3. PSYCH: Normal mood and affect Extrem: Ankle/foot/toe images: 1. area of bruising and tenderness Course Course Emergency Course: Patient is aware of diagnosis, understands and agrees to treatment plan. Anticipatory guidance given. Patient agrees to follow-up as directed and is aware of reasons to seek care at the emergency department. Portions of this record may have been created with voice recognition software Level of Care: Express Care Visit Vital Signs Vital signs: Vital Signs Temperature 97.4 F L 11/22/24 09:37 Pulse Rate 87 11/22/24 09:37 Respiratory Rate 18 11/22/24 09:37 Blood Pressure 118/73 11/22/24 09:37 Pulse Oximetry 100 11/22/24 09:37 Oxygen Delivery Room Air 11/22/24 09:37 Temperature 97.4 F L 11/22/24 09:37 Pulse Rate 87 11/22/24 09:37 Respiratory Rate 18 11/22/24 09:37 Blood Pressure 118/73 11/22/24 09:37 Pulse Oximetry 100 11/22/24 09:37 Oxygen Delivery Room Air 11/22/24 09:37 Reviewed MDM - Extremity Injury (Lower) MDM Narrative Medical decision making narrative: Discussed physical exam findings and xray 5th metatarsal non displaced fracture. WINSOME and post op shoe provided for pt today. She states she has a walking boot at home. Also has followed with Dr Baez and will f/u. Advised supportive measures and signs/symptoms to go to the ER. Pt is appropriate for outpt treatment and f/u. Differential Diagnosis Differential diagnosis: Likely ankle sprain and strain, fracture of toe and ankle fracture Imaging Data Radiologist's impression: Patient: Nancy Lopez : 1950 MR#: [id number] Age: 74 Acct:[id number] Loc: [facility] ADM Date: 11/22/24Attending Dr: Ordering Physician: Kristy Bal APRN Date of Service: 11/22/24 Procedure(s): XR foot RT min 3V Accession Number(s): [id number] cc: Kristy Bal APRN; Janessa Marsh PA-C~ EXAMINATION: XR foot RT min 3V DATE: 11/22/2024 09:56 INDICATION: Lateral right foot pain post injury TECHNIQUE: Dorsoplantar, two oblique and lateral views of the right foot were obtained. COMPARISON: None. FINDINGS: Nondisplaced extra articular fracture extending across the proximal metaphyseal region of the right fifth metatarsal. Old healed fracture deformity at the distal diaphysis of the second metatarsal. No other fractures identified. Moderate to severe osteoarthritis at the first metatarsophalangeal joint with mild plantar/lateral subluxation. Bone alignment is otherwise normal. Additional mild polyarticular osteoarthritis involving many of the joints in the mid and forefoot. Mild soft tissue swelling along the lateral aspect of the midfoot. IMPRESSION: 1. Nondisplaced extra articular fracture at the proximal metaphyseal region of the right fifth metatarsal. Discharge Plan Discharge Clinical Impression: Fracture of 5th metatarsal Patient Disposition: Home, Self-Care Condition: Stable Instructions: Foot Fracture in Adults (ED) Additional Instructions: Rest. Limit weight bearing. apply ice and elevate the right foot Tylenol 1000mg every 8 hours. Keep shoe and WINSOME clean, dry and in place. You can wear the walking boot if you find it at home. Go to the ER immediately for increased pain, tingling/numbness, swelling, etc Follow up with Orthopedic Surgery in 1-2 days for further evaluation - please call for an appointment. Patient Language: Estonian Prescriptions: No Action nitroglycerin 0.4 mg tablet, sublingual 0.4 mg sublingual Q5M PRN Rx Instructions: do not exceed 3 doses per episode [id number] 3.5-10,000-1 mg/mL-unit/mL-% drops,suspension 4 drp otic (ear) Q8H Qty: 10 1RF Rx Instructions: foot 4 drops in right ear with ear up toward ceiling for 15 seconds t.i.d. azelastine 137 mcg (0.1 %) spray,non-aerosol 137 mcg intranasal . q.h.s. Qty: 30 2RF Rx Instructions: administer into each nostril 1 or 2 sprays q.h.s. at bedtime fluocinolone acetonide oil [DermOtic Oil] 0.01 % drops 5 drp otic (ear) BID 7 Days Qty: 20 3RF Rx Instructions: put 5 drops in the right ear with ear up for 1 minute afterwards b.i.d. fluticasone propionate [Flonase Allergy Relief] 50 mcg/actuation spray,suspension 2 spray intranasal DAILY Qty: 18 3RF Rx Instructions: administer into each nostril 1 or 2 sprays daily each nostril glucosamine HCl 500 mg tablet 1,000 mg PO DAILY Rx Instructions: administer with a meal psyllium husk [Daily Fiber] 0.4 gram capsule 0.4 g PO DAILY calcium citrate-vitamin D3 [Calcium Citrate + D] 315 mg-5 mcg (200 unit) Tablet 1 tablet PO BID cholecalciferol (vitamin D3) 50 mcg (2,000 unit) Tablet 100 mcg PO DAILY cyanocobalamin (vitamin B-12) 2,500 mcg Tablet 2,500 mcg PO DAILY Eliquis 5 mg tablet 5 mg PO BID Qty: 180 0RF pantoprazole 40 mg tablet,delayed release (DR/EC) 40 mg PO QAM Qty: 100 0RF atorvastatin 40 mg tablet 40 mg PO QHS Qty: 90 1RF meloxicam 15 mg tablet 15 mg PO DAILY Qty: 100 1RF metoprolol succinate 25 mg tablet extended release 24 hr 25 mg PO DAILY Qty: 90 0RF famotidine 20 mg tablet 20 mg PO DAILY Qty: 90 0RF Follow-up/Referrals: Janessa Marsh PA-C [Primary Care Provider] - Vasiliy Schmidt MD [Physician] -
== END 2024-11-22 10:30 | disposition home or self-care (01) ==
PROVIDERS: Emergency Provider Nurse Practitioner Family; PCP Physician Assistant Medical
DX: S92.354A Nondisplaced fracture of fifth metatarsal bone, right foot, initial encounter for closed fracture (principal); X50.9XXA Other and unspecified overexertion or strenuous movements or postures, initial encounter; K21.9 Gastro-esophageal reflux disease without esophagitis; M81.0 Age-related osteoporosis without current pathological fracture; M19.90 Unspecified osteoarthritis, unspecified site; M17.0 Bilateral primary osteoarthritis of knee; M47.816 Spondylosis without myelopathy or radiculopathy, lumbar region; Z98.42 Cataract extraction status, left eye; Z98.41 Cataract extraction status, right eye; Z79.01 Long term (current) use of anticoagulants
CPT/HCPCS: 73630; 99214; G0463